=== PATIENT | male | born 1955 | race Caucasian/White ===

== ENCOUNTER → 2020-03-04 | Day surgery (SDC) | payer BC ==
[2020-03-02 13:45] VITALS: BMI 27.8
[~2020-03-04] MED LIST: LACTATED RINGERS 1,000 ML IV SCH; LIDOCAINE 1% (10MG/ML) FOR IV START INTRADERMA ONE; LIDOCAINE 1% INJ 10MG/ML (20 ML MDV) ONE; MIDAZOLAM 2 MG/2 ML VIAL ONE; PROPOFOL 10 MG/ML 20 ML VIAL IV ONE; fentaNYL (PF) 50 MCG/ML 2 ML AMP ONE
--- NOTE | 2020-03-04 08:04 | P.GSHP ---
History of Present Illness H&P Date: 03/04/20 CHIEF COMPLAINT: Colon screen HISTORY OF PRESENT ILLNESS: The patient is a 64-year-old male who presents for colon screen. Lower endoscopy was offered for further evaluation and management. PAST MEDICAL HISTORY: Please see list. PAST SURGICAL HISTORY: Please see list. MEDICATIONS: Please see list. ALLERGIES: Please see list. SOCIAL HISTORY: No illicit drug use FAMILY HISTORY: No reports of Crohn disease or ulcerative colitis. REVIEW OF ORGAN SYSTEMS: CONSTITUTIONAL: No reports of fevers or chills. PHYSICAL EXAM: VITAL SIGNS: Stable GENERAL: Well-developed pleasant in no acute distress. HEENT: No scleral icterus. Extraocular movements grossly intact. Moist buccal mucosa. NECK: Supple without lymphadenopathy. CHEST: Unlabored respirations. Equal bilateral excursions. CARDIOVASCULAR: Regular rate and rhythm. Distal 2+ pulses. ABDOMEN: Soft, nontender, nondistended. MUSCULOSKELETAL: No clubbing, cyanosis, or edema. ASSESSMENT: 1. Colon screen. PLAN: 1. Recommend proceeding with a lower endoscopy Past Medical History Past Medical History: Chest Pain / Angina, Diabetes Mellitus, Hyperlipidemia, Hypertension, Myocardial Infarction ([place]) Last Myocardial Infarction Date:: 2004 History of Any Multi-Drug Resistant Organisms: None Reported Past Surgical History: Heart Catheterization With Stent, Hernia Repair Additional Past Surgical History / Comment(s): Stents 2004, 2011, double aortic anerysym surgery. Past Anesthesia/Blood Transfusion Reactions: No Reported Reaction Date of Last Stent Placement:: 2011 Smoking Status: Former smoker - Past Family History Father Family Medical History: No Reported History Medications and Allergies Home Medications Medication Instructions Recorded Confirmed Type Aspirin [Adult Low Dose Aspirin EC] 81 mg PO DAILY 12/02/19 03/02/20 History Atorvastatin [Lipitor] 40 mg PO DAILY 12/02/19 03/02/20 History Lisinopril [Prinivil] 5 mg PO QAM 12/02/19 03/02/20 History Metoprolol Tartrate [Lopressor] 50 mg PO QAM 12/02/19 03/02/20 History metFORMIN HCL ER [Glucophage Xr] 500 mg PO PC-SUPPER 12/02/19 03/02/20 History Allergies Allergy/AdvReac Type Severity Reaction Status Date / Time No Known Allergies Allergy Verified 03/02/20 13:39
[2020-03-04 08:20] VITALS: RESP 16; TEMP 96.9
[2020-03-04 08:41] LABS: Glucose,Whole Blood 111 mg/dL (75-99)
--- NOTE | 2020-03-04 09:12 | P.PCN ---
Date of Procedure: 03/04/20 Description of Procedure: PREOPERATIVE DIAGNOSIS: Colonoscopy screening POSTOPERATIVE DIAGNOSIS: Tubular adenoma ascending colon Tubular adenoma sigmoid colon Sigmoid diverticulosis Internal hemorrhoids, grade 2 OPERATION: Colonoscopy to the ileocecal valve and appendiceal orifice. Colonoscopy with multiple hot snare polypectomies Colonoscopy with cold forceps biopsies SURGEON: Tayler Don MD. ANESTHESIA: MAC. INDICATIONS: The patient is an 64-year-old male who presents for his first colonoscopy screening. Benefits and risks were described and informed consent was obtained. DESCRIPTION OF PROCEDURE: The patient had undergone Suprep. He had been brought into the operating room and laid in the left lateral decubitus position. After adequate intravenous sedation, the rectum was examined with 2% lidocaine jelly. The prostate was unremarkable. External hemorrhoids were encountered. The rectal tone was within normal limits. No lesions were palpated in the rectal vault. An Olympus colonoscope was advanced until the ileocecal valve and appendiceal orifice were clearly viewed. The prep was fair. Sigmoid diverticulosis was encountered. Multiple colonic polyps were found and snare polypectomy. No evidence of focal colitis was found. Retroflexion of the scope demonstrated grade 2 internal hemorrhoids without active bleeding or inflammation. The colon was desufflated. The patient had tolerated the procedure well. Withdrawal time was over 6 minutes. FINDINGS: Aronchick preparation quality scale 2 (1-5) Internal hemorrhoids, grade 2 with recent inflammation and bleeding External hemorrhoids, grade 2. No arteriovenous malformations. Sigmoid diverticulosis Removal of 4 polyps from the proximal, mid transverse colon and descending colon: - Snare polypectomy 21 cm from the anal verge, 6 mm tubulovillous adenoma polyp. - Snare polypectomy at ascending colon, 5 mm flat villous adenoma polyp. - Cold forceps biopsy at 20 cm from the anal verge, 4 mm polyp. - Cold forceps biopsy at 18 cm from the anal verge, 5 mm polyp. No focal colitis. RECOMMENDATIONS: Repeat colonoscopy in 3 years, 2022 Plan - Discharge Summary Discharge Rx Participant: No New Discharge Prescriptions: Continue Metoprolol Tartrate [Lopressor] 50 mg PO QAM Atorvastatin [Lipitor] 40 mg PO DAILY metFORMIN HCL ER [Glucophage Xr] 500 mg PO PC-SUPPER Lisinopril [Prinivil] 5 mg PO QAM Aspirin [Adult Low Dose Aspirin EC] 81 mg PO DAILY Discharge Medication List Aspirin [Adult Low Dose Aspirin EC] 81 mg PO DAILY 03/16/20 [History] Atorvastatin [Lipitor] 40 mg PO DAILY 12/02/19 [History] Lisinopril [Prinivil] 5 mg PO QAM 12/02/19 [History] Metoprolol Tartrate [Lopressor] 50 mg PO QAM 12/02/19 [History] metFORMIN HCL ER [Glucophage Xr] 500 mg PO PC-SUPPER 12/02/19 [History] Follow up Appointment(s)/Referral(s): Tayler Don MD [STAFF PHYSICIAN] - As Needed Patient Instructions/Handouts: *Surgery [facility] - (Anesthesia) Endoscopy Discharge Instructions, Colonoscopy (DC), Diverticulosis Diet (GEN), Diverticulosis (DC) Activity/Diet/Wound Care/Special Instructions: Expected blood in stools for 5 days. Repeat colonoscopy in 3 years, 2022 Discharge Disposition: HOME SELF-CARE
[2020-03-04 09:30] VITALS: BP 106/68; PULSE 60
== END | disposition home or self-care (01) ==
LOC: ORWHC2ENDO 07:56
PROVIDERS: ATTEND Surgery Plastic and Reconstructive Surgery
DX: Z12.11 Encounter for screening for malignant neoplasm of colon (principal); K63.5 Polyp of colon; K57.30 Diverticulosis of large intestine without perforation or abscess without bleeding; K64.1 Second degree hemorrhoids; E11.9 Type 2 diabetes mellitus without complications; E78.5 Hyperlipidemia, unspecified; I10 Essential (primary) hypertension; I25.2 Old myocardial infarction; Z95.5 Presence of coronary angioplasty implant and graft; Z98.890 Other specified postprocedural states; Z87.891 Personal history of nicotine dependence; Z79.84 Long term (current) use of oral hypoglycemic drugs; Z79.82 Long term (current) use of aspirin; Z79.899 Other long term (current) drug therapy
CPT/HCPCS: 88305; 45380; 45385; J2250; J2001; J3010; J2704

== ENCOUNTER 2020-08-03 14:30 | Emergency (ER) | payer BC, OTHER ==
--- NOTE | 2020-08-03 15:01 | XR ---
EXAMINATION TYPE: XR ribs bilat w pa chest xray DATE OF EXAM: 08/03/2020 COMPARISON: 02/09/2013 HISTORY: Pain TECHNIQUE: Frontal view of the chest and 4 views of the ribs were obtained bilaterally. FINDINGS: There is no pneumothorax. Limited inspiration with subsegmental changes at both lung bases likely related atelectasis. There is a displaced fracture involving the posterior lateral left eighth through 11th rib. Surgical clips are seen in the abdomen. IMPRESSION: 1. Undisplaced fractures involving the left eighth through 11th rib. Correlate clinically. No pneumot horax.
[2020-08-03 15:05] VITALS: RESP 18
[2020-08-03] MEDS ORDERED: MORPHINE SULFATE 4 MG/ML SYRINGE IM STA (15:48)
[2020-08-03] MEDS ORDERED: MORPHINE SULFATE 4 MG/ML SYRINGE IVP STA (15:48)
--- NOTE | 2020-08-03 16:01 | ED ---
Fall HPI - General Chief Complaint: Fall Stated Complaint: [facility] Fell off of ladder Time Seen by Provider: 08/03/20 15:16 Source: patient Mode of arrival: ambulatory - History of Present Illness Initial Comments: Patient is a 65-year-old male presents emergency Department with complaints of left rib pain after he fell approximately 4-5 feet off a ladder about 4 hours prior to arrival. Patient states she was trying to change a light bulb when he missed his footing and fell off landing onto a hard piece of equipment. Patient states he did not hit his head and has no other injuries except for this left rib pain. Patient does also have an abrasion to the same area he's having pain. He denies being on blood thinners. He denies any neck pain, chest pain, trouble breathing, abdominal pain, pain in his extremities. She states she did not take any pain medicine yet, he took a cab to the ER. Patient has no further complaints from this fall. Upon arrival to the ER, his vitals are stable. - Related Data Home Medications Medication Instructions Recorded Confirmed Aspirin [Adult Low Dose Aspirin EC] 81 mg PO DAILY 12/02/19 08/03/20 Atorvastatin [Lipitor] 40 mg PO DAILY 12/02/19 08/03/20 Metoprolol Tartrate [Lopressor] 50 mg PO DAILY 12/02/19 08/03/20 lisinopriL [Prinivil] 5 mg PO DAILY 12/02/19 08/03/20 metFORMIN HCL ER [Glucophage Xr] 500 mg PO PC-SUPPER 12/02/19 08/03/20 Previous Rx's Medication Instructions Recorded Hydrocodone/Acetaminophen [[place] 1 tab PO Q6HR PRN #12 tab 08/03/20 5-325] Allergies Allergy/AdvReac Type Severity Reaction Status Date / Time No Known Allergies Allergy Verified 08/03/20 16:02 Review of Systems ROS Statement: Those systems with pertinent positive or pertinent negative responses have been documented in the HPI. ROS Other: All systems not noted in ROS Statement are negative. Past Medical History Past Medical History: Chest Pain / Angina, Diabetes Mellitus, Hyperlipidemia, Hypertension, Myocardial Infarction ([place]) Last Myocardial Infarction Date:: 2004 History of Any Multi-Drug Resistant Organisms: None Reported Past Surgical History: Heart Catheterization With Stent, Hernia Repair Additional Past Surgical History / Comment(s): Stents 2004, 2011, double aortic anerysym surgery. Past Anesthesia/Blood Transfusion Reactions: No Reported Reaction Date of Last Stent Placement:: 2011 Past Psychological History: No Psychological Hx Reported Past Alcohol Use History: Occasional Past Drug Use History: None Reported - Past Family History Father Family Medical History: No Reported History General Exam - General Exam Comments Initial Comments: GENERAL: Patient is well-developed and well-nourished. Patient is nontoxic and in no acute distress. HEAD: Atraumatic, normocephalic. EYES: Pupils equal round and reactive to light, extraocular movements intact, sclera anicteric, conjunctiva are normal. Eyelids were unremarkable. ENT: TMs normal, nares patent, oropharynx clear without exudates. Moist mucous membranes. NECK: Normal range of motion, supple without lymphadenopathy or JVD. LUNGS: Unlabored respirations. Breath sounds clear to auscultation bilaterally and equal. No wheezes rales or rhonchi. HEART: Regular rate and rhythm without murmurs, rubs or gallops. ABDOMEN: Soft, nontender, normoactive bowel sounds. No guarding, no rebound. No masses appreciated. No flank pain. : Deferred MUSCULOSKELETAL: Normal extremities with adequate strength and normal range of motion, no pitting or edema. No clubbing or cyanosis. Pain with palpation of the left middle, lateral ribs. NEUROLOGICAL: Patient is alert and oriented x 3. Motor and sensory are also intact. Cranial nerves II through XII grossly intact. Symmetrical smile. Normal speech, normal gait. PSYCH: Normal mood, normal affect. SKIN: Warm, Dry, normal turgor. Patient has a large abrasion to his left low back, left side. There is no active bleeding. This is tender to palpation. Limitations: no limitations Course Vital Signs 08/03/20 08/03/20 14:34 16:29 Temperature 98.3 F Pulse Rate 96 94 Respiratory 18 18 Rate Blood Pressure 114/78 120/76 O2 Sat by Pulse 98 96 Oximetry Medical Decision Making - Medical Decision Making Patient is a 65-year-old male presenting with left rib pain after falling 4-5 feet off ladder about 4 hours prior to arrival. He did not hit his head, he is not on blood thinners. His only complaint is a left rib pain. X-rays reveal nondisplaced fractures involving the left eighth through 11th rib. There is no pneumothorax. Patient's vital signs are stable here. He does not have any abdominal pain no other areas of pain. Patient was given pain medicine. He states he does not want to stay in the hospital. I will send him home with additional pain medicine as well as incentive spirometry. Patient is in agreement with this plan of care. Strict return parameters were discussed with the patient and he verbalized understanding. He'll follow up with his PCP. Case discussed with Dr. Mccord. Disposition Clinical Impression: Fall, Multiple fractures of ribs, left side, initial encounter for closed fracture Disposition: HOME SELF-CARE Condition: Stable Instructions (If sedation given, give patient instructions): Rib Fracture (ED) Additional Instructions: Please return to the Emergency Department if symptoms worsen or any other concerns. Recommend alternating between Tylenol and Motrin for discomfort. May take [place] for severe pain. Use incentive spirometry as discussed to prevent pneumonia. Follow-up with PCP. Prescriptions: Hydrocodone/Acetaminophen [[place] 5-325] 1 tab PO Q6HR PRN #12 tab PRN Reason: Pain Is patient prescribed a controlled substance at d/c from ED?: Yes When asked, does pt state using other controlled substances?: No If prescribed controlled substance>3 days was MAPS reviewed?: Prescribed <3 Days If opioid is for acute pain is fill amount 7 days or less?: Yes If Rx opioid, was Start Talking consent form obtained?: Yes Referrals: Yemi Vizcaino DO [Primary Care Provider] - 1-2 days
[2020-08-03 16:30] VITALS: BP 120/76; PULSE 94; TEMP 98.3
== END 2020-08-03 16:30 | disposition home or self-care (01) ==
LOC: EC 14:30
DX: S22.42XA Multiple fractures of ribs, left side, initial encounter for closed fracture (principal); E11.9 Type 2 diabetes mellitus without complications; E78.5 Hyperlipidemia, unspecified; I10 Essential (primary) hypertension; I20.9 Angina pectoris, unspecified; I25.2 Old myocardial infarction; Z79.84 Long term (current) use of oral hypoglycemic drugs; Z79.82 Long term (current) use of aspirin; Z95.5 Presence of coronary angioplasty implant and graft; W11.XXXA Fall on and from ladder, initial encounter; Y93.89 Activity, other specified; Y92.69 Other specified industrial and construction area as the place of occurrence of the external cause
CPT/HCPCS: 71111; 99284; 96372; J2270

== ENCOUNTER 2020-10-29 14:51 | Emergency (ER) | payer BC, OTHER ==
[2020-10-29 15:02] VITALS: BP 125/70; PULSE 77; RESP 18; TEMP 98.2
[2020-10-29] MEDS ORDERED: LIDOCAINE 1% INJ 10MG/ML (20 ML MDV) SQ ONE (15:47)
[2020-10-29] MEDS ORDERED: DIPH,PERTUS(ACELL)TETVAC-LF 0.5 ML VIAL IM ONE (15:49)
--- NOTE | 2020-10-29 15:49 | ED ---
Wound/Laceration HPI - General Chief Complaint: Wound/Laceration Stated Complaint: finger lac-[facility] Time Seen by Provider: 10/29/20 15:43 Source: patient Mode of arrival: ambulatory Limitations: no limitations - History of Present Illness Initial Comments: 65-year-old male presents to emergency Department with a chief complaint of laceration. Patient states this occurred about one hour prior to arrival. States he cut his finger on a band saw. States injury is located in the posterior aspect of the left second digit. States there was some initial b leeding which has since mostly resolved. He does not take any blood thinners. Reports full range of motion of the left second digit. Denies numbness or tingling. Tetanus not up-to-date. - Related Data Home Medications Medication Instructions Recorded Confirmed Aspirin [Adult Low Dose Aspirin EC] 81 mg PO DAILY 12/02/19 08/03/20 Atorvastatin [Lipitor] 40 mg PO DAILY 12/02/19 08/03/20 Metoprolol Tartrate [Lopressor] 50 mg PO DAILY 12/02/19 08/03/20 lisinopriL [Prinivil] 5 mg PO DAILY 12/02/19 08/03/20 metFORMIN HCL ER [Glucophage Xr] 500 mg PO PC-SUPPER 12/02/19 08/03/20 Previous Rx's Medication Instructions Recorded Hydrocodone/Acetaminophen [[place] 1 tab PO Q6HR PRN #12 tab 08/03/20 5-325] Allergies Allergy/AdvReac Type Severity Reaction Status Date / Time No Known Allergies Allergy Verified 10/29/20 15:00 Review of Systems ROS Statement: Those systems with pertinent positive or pertinent negative responses have been documented in the HPI. ROS Other: All systems not noted in ROS Statement are negative. Past Medical History Past Medical History: Chest Pain / Angina, Diabetes Mellitus, Hyperlipidemia, Hypertension, Myocardial Infarction ([place]) Last Myocardial Infarction Date:: 2004 History of Any Multi-Drug Resistant Organisms: None Reported Past Surgical History: Heart Catheterization With Stent, Hernia Repair Additional Past Surgical History / Comment(s): Stents 2004, 2011, double aortic anerysym surgery. Past Anesthesia/Blood Transfusion Reactions: No Reported Reaction Date of Last Stent Placement:: 2011 Past Psychological History: No Psychological Hx Reported Smoking Status: Never smoker Past Alcohol Use History: Occasional Past Drug Use History: None Reported - Past Family History Father Family Medical History: No Reported History General Exam Limitations: no limitations General appearance: alert, in no apparent distress Head exam: Present: atraumatic, normocephalic, normal inspection Eye exam: Present: normal appearance, PERRL, EOMI Pupils: Present: normal accommodation ENT exam: Present: normal exam, normal oropharynx, mucous membranes moist Neck exam: Present: normal inspection, full ROM. Absent: tenderness Respiratory exam: Present: normal lung sounds bilaterally. Absent: respiratory distress Cardiovascular Exam: Present: regular rate, normal rhythm, normal heart sounds Extremities exam: Present: full ROM, tenderness, normal capillary refill, other (palpable ulnar and radial pulses bilaterally.). Absent: normal inspection (27 with a laceration of the posterior aspect of the left second digit.no injury to the nail or nailbed.), pedal edema, joint swelling, calf tenderness Back exam: Present: normal inspection, full ROM. Absent: tenderness Neurological exam: Present: alert, oriented X3, normal gait Psychiatric exam: Present: normal affect, normal mood Skin exam: Present: warm, dry, intact, normal color Course Vital Signs 10/29/20 15:00 Temperature 98.2 F Pulse Rate 77 Respiratory 18 Rate Blood Pressure 125/70 O2 Sat by Pulse 97 Oximetry Procedures - Laceration Laceration #1 Consent Obtained: verbal consent Indication: laceration Site: hand Size (cm): 2 Description: linear, clean Depth: simple, single layer Sedation/Analgesia: none Anesthetic Used: lidocaine 1% Anesthesia Technique: local infiltration Amount (mls): 5 Pre-repair: irrigated extensively, deep structures intact Type of Sutures: nylon Size of Sutures: 4-0 Number of Sutures: 4 Technique: simple, interrupted, other ([id number]) Patient Tolerated Procedure: well, no complications Medical Decision Making - Medical Decision Making 65-year-old male presents emergency Department with a chief complaint of laceration. On physical examination, there is a laceration on the posterior aspect the left second digit measuring approximately 2 cm in length. Laceration site was thoroughly irrigated. There is a small arterial bleed. [id number] suture applied in addition to 3 simple interrupted sutures. Tetanus was updated. Bleeding subsided. Patient advised to return in 7 days for suture removal. Return parameters discussed the patient was understanding and agreeable. Case discussed with Disposition Clinical Impression: Laceration Disposition: HOME SELF-CARE Condition: Stable Instructions (If sedation given, give patient instructions): Care For Your Stitches (DC), Laceration (DC) Additional Instructions: Please return to the emergency room in 7 days to have sutures removed. Please watch for any signs of infection which may include increased pain, swelling, redness, fever or chills. Please return to emergency room for any signs of infection do occur. Please use clean soap and water over the area to prevent scabbing over your stitches. Please leave wound covered for the first 24-48 hours and then leave wound open to air. Please return to the emergency room for any other concerns. Is patient prescribed a controlled substance at d/c from ED?: No Referrals: Yemi Vizcaino DO [Primary Care Provider] - 1-2 days Time of Disposition: 16:17
== END 2020-10-29 16:32 | disposition home or self-care (01) ==
LOC: EC 14:51
DX: S61.211A Laceration without foreign body of left index finger without damage to nail, initial encounter (principal); E11.9 Type 2 diabetes mellitus without complications; E78.5 Hyperlipidemia, unspecified; I10 Essential (primary) hypertension; I25.2 Old myocardial infarction; Z23 Encounter for immunization; Z79.82 Long term (current) use of aspirin; Z79.84 Long term (current) use of oral hypoglycemic drugs; Z79.899 Other long term (current) drug therapy; Z95.5 Presence of coronary angioplasty implant and graft; W31.2XXA Contact with powered woodworking and forming machines, initial encounter; Y92.69 Other specified industrial and construction area as the place of occurrence of the external cause; Y99.0 Civilian activity done for income or pay
CPT/HCPCS: 90715; 99282; 12001; 90471; J2001

== ENCOUNTER 2022-08-25 19:39 | Emergency (ER) | payer BC ==
[2022-08-25 19:49] VITALS: TEMP 98.5
--- NOTE | 2022-08-26 03:09 | XR ---
EXAMINATION TYPE: XR KUB DATE OF EXAM: 08/26/2022 COMPARISON: NONE HISTORY: Constipation TECHNIQUE: 2 views upright FINDINGS: There is some mild retained fecal material in the large bowel. No sign of intestinal obstru ction or pneumoperitoneum. No pathologic calcification over the kidneys. Lung bases are clear of cons olidation. IMPRESSION: Nonacute abdomen.
[2022-08-26] MEDS ORDERED: LACTULOSE 20 GM/30 ML CUP PO ONE (03:45)
--- NOTE | 2022-08-26 04:00 | ED ---
Abdominal Pain HPI - General Chief Complaint: Abdominal Pain Stated Complaint: Constipation Time Seen by Provider: 08/26/22 02:55 Source: patient Mode of arrival: ambulatory Limitations: no limitations - History of Present Illness Initial Comments: 67-year-old male presents emergency departments reporting constipation. He states that he normally uses to have bowel movements daily. Approximately 3 weeks ago the patient began suffering from constipation and has had a hard time having bowel movements. He has been increasing his water and fiber intake. He has even taken MiraLAX a couple a times. States that he will pass a small amount of stool however nothing significant. Nits to abdominal distention. He did see his surgeon, Dr. rC because of his issue. He is scheduled for a colonoscopy next week. He denies using any other medications to have a bowel movement other than the MiraLAX. States that he eats a high fiber diet and has been exercising. He did start taking CoQ10 3 weeks ago however denies any other medication changes. Does not take any chronic narcotics or iron supplements. He last had a colonoscopy 3 years ago which demonstrated polyps. No history of cancer. He denies any black or bloody stools. No difficulties with urination. No back pain. No other alleviating, precipitating or modifying factors - Related Data Home Medications Medication Instructions Recorded Confirmed Aspirin [Adult Low Dose Aspirin EC] 81 mg PO DAILY 12/02/19 08/26/22 Atorvastatin [Lipitor] 40 mg PO DAILY 12/02/19 08/26/22 Metoprolol Tartrate [Lopressor] 50 mg PO DAILY 12/02/19 08/26/22 lisinopriL [Prinivil] 2.5 mg PO DAILY 12/02/19 08/26/22 metFORMIN HCL ER [Glucophage XR] 500 mg PO PC-SUPPER 12/02/19 08/26/22 Multivitamins, Thera [Multivitamin 1 tab PO DAILY 08/26/22 08/26/22 (formulary)] Previous Rx's Medication Instructions Recorded Lactulose [Cephulac] 20 gm PO BID PRN #420 ml 08/26/22 Allergies Allergy/AdvReac Type Severity Reaction Status Date / Time No Known Allergies Allergy Verified 08/31/22 07:21 Review of Systems ROS Statement: Those systems with pertinent positive or pertinent negative responses have been documented in the HPI. ROS Other: All systems not noted in ROS Statement are negative. Past Medical History Past Medical History: Chest Pain / Angina, Diabetes Mellitus, Hyperlipidemia, Hypertension, Myocardial Infarction ([place]) Last Myocardial Infarction Date:: 2004 History of Any Multi-Drug Resistant Organisms: None Reported Past Surgical History: Heart Catheterization With Stent, Hernia Repair Additional Past Surgical History / Comment(s): Stents 2004, 2011, double aortic anerysym surgery. Past Anesthesia/Blood Transfusion Reactions: No Reported Reaction Date of Last Stent Placement:: 2011 Past Psychological History: No Psychological Hx Reported Smoking Status: Never smoker Past Alcohol Use History: Occasional Past Drug Use History: None Reported - Past Family History Father Family Medical History: No Reported History General Exam Limitations: no limitations General appearance: alert, in no apparent distress Head exam: Present: atraumatic, normocephalic, normal inspection Eye exam: Present: normal appearance, PERRL, EOMI. Absent: scleral icterus, conjunctival injection, periorbital swelling ENT exam: Present: normal exam, mucous membranes moist Neck exam: Present: normal inspection. Absent: tenderness, meningismus, lymphadenopathy Respiratory exam: Present: normal lung sounds bilaterally. Absent: respiratory distress, wheezes, rales, rhonchi, stridor Cardiovascular Exam: Present: regular rate, normal rhythm, normal heart sounds. Absent: systolic murmur, diastolic murmur, rubs, gallop, clicks GI/Abdominal exam: Present: soft, normal bowel sounds. Absent: distended, tenderness, guarding, rebound, rigid Extremities exam: Present: normal inspection, full ROM, normal capillary refill. Absent: tenderness, pedal edema, joint swelling, calf tenderness Back exam: Present: normal inspection Neurological exam: Present: alert, oriented X3, CN II-XII intact Psychiatric exam: Present: normal affect, normal mood Skin exam: Present: warm, dry, intact, normal color. Absent: rash Course Vital Signs 08/25/22 08/26/22 08/26/22 19:47 02:21 04:03 Temperature 98.5 F Pulse Rate 89 82 87 Respiratory 18 18 16 Rate Blood Pressure 161/89 159/82 126/71 O2 Sat by Pulse 98 97 98 Oximetry Medical Decision Making - Medical Decision Making On arrival patient was placed into room 33. A thorough history and physical exam was performed. X-ray is performed of the patient's abdomen which demonstrates mild retained fecal matter in the large bowel. No obstruction. His results are discussed with the patient. He has no tenderness to abdominal palpation. I discussed diagnosis, differential treatment options. Patient given a dose of lactulose the emergency room. Will be discharged home with an additional prescription for lactulose. Instructed to keep his appointment for his colonoscopy and return for any new or worsening symptoms. Patient was agreeable to treatment plan and he was discharged home in stable condition Disposition Clinical Impression: Constipation Disposition: HOME SELF-CARE Condition: Stable Instructions (If sedation given, give patient instructions): Constipation (ED) Additional Instructions: Please take the lactulose up to twice daily for constipation. Follow-up for your colonoscopy. Return for any new or worsening symptoms Prescriptions: Lactulose [Cephulac] 20 gm PO BID PRN #420 ml PRN Reason: Constipation Is patient prescribed a controlled substance at d/c from ED?: No Referrals: Yemi Vizcaino DO [Primary Care Provider] - 1-2 days Time of Disposition: 04:01
[2022-08-26 04:06] VITALS: BP 126/71; PULSE 87; RESP 16
== END 2022-08-26 04:03 | disposition home or self-care (01) ==
LOC: EC 19:39
DX: K59.00 Constipation, unspecified (principal); I10 Essential (primary) hypertension; I25.2 Old myocardial infarction; E11.9 Type 2 diabetes mellitus without complications; E78.5 Hyperlipidemia, unspecified; Z79.82 Long term (current) use of aspirin; Z79.84 Long term (current) use of oral hypoglycemic drugs; Z79.899 Other long term (current) drug therapy
CPT/HCPCS: 74018; 99284

== ENCOUNTER 2022-08-31 06:56 | Day surgery (SDC) | payer BC ==
[2022-08-26 12:02] VITALS: BMI 26.6
[~2022-08-31 06:56] MED LIST changes: -LIDOCAINE 1% (10MG/ML) FOR IV START INTRADERMA ONE; +LIDOCAINE 1% (10MG/ML) FOR IV START INTRADERMA PRN; -LIDOCAINE 1% INJ 10MG/ML (20 ML MDV) ONE; -MIDAZOLAM 2 MG/2 ML VIAL ONE; -PROPOFOL 10 MG/ML 20 ML VIAL IV ONE; -fentaNYL (PF) 50 MCG/ML 2 ML AMP ONE
[2022-08-31 07:24] VITALS: TEMP 96.8
[2022-08-31 07:39] LABS: Glucose,Whole Blood 113 mg/dL (70-110)
[2022-08-31] MEDS ORDERED: PROPOFOL 10 MG/ML 20 ML VIAL IV ONE (07:43)
--- NOTE | 2022-08-31 07:50 | P.GSHP ---
History of Present Illness H&P Date: 08/31/22 CHIEF COMPLAINT: Change in bowel habits HISTORY OF PRESENT ILLNESS: The patient is a 67-year-old male who presents with change in bowel habits not being able to use the bathroom 3 weeks. Presented to the emergency room 1 week ago. Lower endoscopy was offered for further evaluation and management. PAST MEDICAL HISTORY: Please see list. PAST SURGICAL HISTORY: Please see list. MEDICATIONS: Please see list. ALLERGIES: Please see list. SOCIAL HISTORY: No illicit drug use FAMILY HISTORY: No reports of Crohn disease or ulcerative colitis. REVIEW OF ORGAN SYSTEMS: CONSTITUTIONAL: No reports of fevers or chills. PHYSICAL EXAM: VITAL SIGNS: Stable GENERAL: Well-developed pleasant in no acute distress. HEENT: No scleral icterus. Extraocular movements grossly intact. Moist buccal mucosa. NECK: Supple without lymphadenopathy. CHEST: Unlabored respirations. Equal bilateral excursions. CARDIOVASCULAR: Regular rate and rhythm. Distal 2+ pulses. ABDOMEN: Soft, nontender, nondistended. MUSCULOSKELETAL: No clubbing, cyanosis, or edema. ASSESSMENT: 1. Change in bowel habits PLAN: 1. Recommend proceeding with a lower endoscopy Past Medical History Past Medical History: Chest Pain / Angina, Diabetes Mellitus, Hyperlipidemia, Hypertension, Myocardial Infarction (AR) Last Myocardial Infarction Date:: 2004 History of Any Multi-Drug Resistant Organisms: None Reported Past Surgical History: Heart Catheterization With Stent, Hernia Repair Additional Past Surgical History / Comment(s): Stents 2004, 2011, double aortic anerysym surgery. Past Anesthesia/Blood Transfusion Reactions: No Reported Reaction Date of Last Stent Placement:: 2011 Smoking Status: Former smoker - Past Family History Father Family Medical History: No Reported History Medications and Allergies Home Medications Medication Instructions Recorded Confirmed Type Aspirin [Adult Low Dose Aspirin EC] 81 mg PO DAILY 12/02/19 08/26/22 History Atorvastatin [Lipitor] 40 mg PO DAILY 12/02/19 08/26/22 History Metoprolol Tartrate [Lopressor] 50 mg PO DAILY 12/02/19 08/26/22 History lisinopriL [Prinivil] 2.5 mg PO DAILY 12/02/19 08/26/22 History metFORMIN HCL ER [Glucophage XR] 500 mg PO PC-SUPPER 12/02/19 08/26/22 History Lactulose [Cephulac] 20 gm PO BID PRN #420 ml 08/26/22 08/26/22 Rx Multivitamins, Thera [Multivitamin 1 tab PO DAILY 08/26/22 08/26/22 History (formulary)] Allergies Allergy/AdvReac Type Severity Reaction Status Date / Time No Known Allergies Allergy Verified 08/31/22 07:21 Surgical - Exam Vital Signs Temp Pulse Resp BP Pulse Ox 96.8 F L 58 L 16 158/74 97 08/31/22 07:23 08/31/22 07:23 08/31/22 07:23 08/31/22 07:23 08/31/22 07:23 Results - Labs Abnormal Lab Results - Last 24 Hours (Table) 08/31/22 Range/Units 07:38 POC Glucose (mg/dL) 113 H (70-110) mg/dL
--- NOTE | 2022-08-31 08:04 | P.PCN ---
Date of Procedure: 08/31/22 Description of Procedure: PREOPERATIVE DIAGNOSIS: Change in bowel habits History of colon polyp POSTOPERATIVE DIAGNOSIS: Diverticulosis, scattered. OPERATION: Colonoscopy to the cecum, ileocecal valve and appendiceal orifice. SURGEON: Tayler Don MD. ANESTHESIA: MAC. INDICATIONS: The patient is a 67-year-old male who presents for change in bowel habits. Benefits and risks were described and informed consent was obtained. DESCRIPTION OF PROCEDURE: The patient had undergone Sutab prep. The patient had been brought into the operating room and laid in the left lateral decubitus position. After adequate intravenous sedation, the rectum was examined with 2% lidocaine jelly. No external hemorrhoids were encountered. The rectal tone was within normal limits. No lesions were palpated in the rectal vault. An Olympus colonoscope was advanced until the cecum, ileocecal valve and appendiceal orifice were clearly viewed. The prep was good. Scattered diverticulosis was encountered throughout the colon. No colonic polyps were found. No evidence of focal colitis was found. Retroflexion of the scope demonstrated grade 2 internal hemorrhoids without active bleeding or inflammation. The colon was desufflated. The patient had tolerated the procedure well. Withdrawal time was over 6 minutes. FINDINGS: Aronchick preparation quality scale 2 (1-5) Internal hemorrhoids, grade 1 No external prolapsed hemorrhoids. No arteriovenous malformations. No adenomatous polyps. No focal colitis. Scattered diverticulosis RECOMMENDATIONS: Lower endoscopy in 5 years, 2026 Plan - Discharge Summary New Discharge Prescriptions: No Action Metoprolol Tartrate [Lopressor] 50 mg PO DAILY Atorvastatin [Lipitor] 40 mg PO DAILY metFORMIN HCL ER [Glucophage XR] 500 mg PO PC-SUPPER lisinopriL [Prinivil] 2.5 mg PO DAILY Aspirin [Adult Low Dose Aspirin EC] 81 mg PO DAILY Lactulose [Cephulac] 20 gm PO BID PRN #420 ml PRN Reason: Constipation Multivitamins, Thera [Multivitamin (formulary)] 1 tab PO DAILY Discharge Medication List Aspirin [Adult Low Dose Aspirin EC] 81 mg PO DAILY 12/02/19 [History] Atorvastatin [Lipitor] 40 mg PO DAILY 12/02/19 [History] Metoprolol Tartrate [Lopressor] 50 mg PO DAILY 12/02/19 [History] lisinopriL [Prinivil] 2.5 mg PO DAILY 12/02/19 [History] metFORMIN HCL ER [Glucophage XR] 500 mg PO PC-SUPPER 12/02/19 [History] Lactulose [Cephulac] 20 gm PO BID PRN #420 ml 08/26/22 [Rx] Multivitamins, Thera [Multivitamin (formulary)] 1 tab PO DAILY 08/26/22 [History]
[2022-08-31 08:47] VITALS: BP 111/59; PULSE 59; RESP 16
== END 2022-08-31 08:50 | disposition home or self-care (01) ==
LOC: ORWHC2ENDO 06:56
PROVIDERS: ATTEND Surgery Plastic and Reconstructive Surgery
DX: K57.30 Diverticulosis of large intestine without perforation or abscess without bleeding (principal); K64.1 Second degree hemorrhoids; Z86.010 Personal history of colon polyps; I25.119 Atherosclerotic heart disease of native coronary artery with unspecified angina pectoris; I10 Essential (primary) hypertension; E78.5 Hyperlipidemia, unspecified; I25.2 Old myocardial infarction; Z79.01 Long term (current) use of anticoagulants; Z79.02 Long term (current) use of antithrombotics/antiplatelets; Z79.82 Long term (current) use of aspirin; Z79.1 Long term (current) use of non-steroidal anti-inflammatories (NSAID); E11.9 Type 2 diabetes mellitus without complications; Z79.899 Other long term (current) drug therapy; Z79.84 Long term (current) use of oral hypoglycemic drugs; Z95.818 Presence of other cardiac implants and grafts; Z98.890 Other specified postprocedural states; Z87.891 Personal history of nicotine dependence
CPT/HCPCS: 45378; J2704

== ENCOUNTER → 2023-09-12 | Outpatient (CLI) | payer BC ==
[2023-09-12 14:51] LABS: Basophils # (A) 0.04 X 10*3/uL (0.00-0.10); Basophils % (A) 0.4 %; Eosinophils # (A) 0.33 X 10*3/uL (0.04-0.35); Eosinophils % (A) 3.6 %; HCT 40.1 % (39.6-50.0); Lymphocytes # (A) 1.47 X 10*3/uL (0.90-5.00); Lymphocytes % (A) 16.1 %; MCH 34.1 pg (27.0-32.0); MCHC 34.9 g/dL (32.0-37.0); MCV 97.8 FL (80.0-97.0); Mean Platelet Volume 10.2 FL (9.5-12.2); Monocytes # (A) 0.51 X 10*3/uL (0.20-1.00); Monocytes % (A) 5.6 %; NRBC Per 100 WBC 0 X 10*3/uL (0.00-0.01); Neutrophils # (A) 6.75 X 10*3/uL (1.80-7.70); Neutrophils % (A) 73.9 %; Platelet Count 194 X 10*3/uL (140-440); RDW 13.1 % (11.5-14.5); WBC 9.14 X 10*3/uL (4.50-10.00)
[2023-09-12 15:18] LABS: Chol/HDL Ratio 2.88 Ratio
[2023-09-12 15:19] LABS: ALT 32 U/L (10-49); AST 15 U/L (14-35); Albumin 4.2 g/dL (3.8-4.9); Albumin/Globulin Ratio 1.91 Ratio (1.60-3.17); Alkaline Phosphatase 128 U/L (41-126); BUN/Creat Ratio 20.11 Ratio (12.00-20.00); Bilirubin, Conjugated <0.20 mg/dL (0.20-0.40); Bilirubin,Unconjugated >0.30 mg/dL (0.20-1.00); Blood Urea Nitrogen 18.1 mg/dL (9.0-27.0); Calcium 9.3 mg/dL (8.7-10.3); Carbon Dioxide 24.5 mmol/L (21.6-31.8); Chloride 104 mmol/L (96-109); Globulin 2.2 g/dL (1.6-3.3); Glucose 196 mg/dL (70-110); LDL Cholesterol,Calculated 54.7 mg/dL (0.0-131.0); Potassium 4.8 mmol/L (3.5-5.5); Sodium 139 mmol/L (135-145); T4, Free (Free Thyroxine) 1.11 ng/dL (0.80-1.80); Total Bilirubin 0.5 mg/dL (0.3-1.2); Total Protein 6.4 g/dL (6.2-8.2)
== END | disposition home or self-care (01) ==
LOC: LABWHC1 09:33
PROVIDERS: ATTEND Internal Medicine Cardiovascular Disease
DX: Z12.5 Encounter for screening for malignant neoplasm of prostate (principal); I25.10 Atherosclerotic heart disease of native coronary artery without angina pectoris; I10 Essential (primary) hypertension; E11.9 Type 2 diabetes mellitus without complications; E78.2 Mixed hyperlipidemia
CPT/HCPCS: 84439; 80061; 80048; 80076; 84443; 85025; 83036; 36415; G0103

== ENCOUNTER 2024-01-30 16:03 | Emergency (ER) | payer BC ==
--- NOTE | 2024-01-30 17:05 | ED ---
Skin/Abscess/FB HPI - General Chief complaint: Skin/Abscess/Foreign Body Stated complaint: Abscess on neck Time Seen by Provider: 01/30/24 16:10 Source: patient, RN notes reviewed Mode of arrival: ambulatory Limitations: no limitations - History of Present Illness Initial comments: This is a 68-year-old male presents emergency department chief complaint of a skin lesion and concern for abscess of his right back. He states that this lesion was noticeable for about a month. States that the went to his primary care provider where they referred him to a summer child caregiver for further evaluation. He denies drainage from the area and pain with direct pressure. He denies feelings of nausea, vomiting, fatigue or discomfort. Denies history of skin cancer. - Related Data Home Medications Medication Instructions Recorded Confirmed Aspirin [Adult Low Dose Aspirin EC] 81 mg PO DAILY 12/02/19 08/26/22 Atorvastatin [Lipitor] 40 mg PO DAILY 12/02/19 08/26/22 Metoprolol Tartrate [Lopressor] 50 mg PO DAILY 12/02/19 08/26/22 lisinopriL [Prinivil] 2.5 mg PO DAILY 12/02/19 08/26/22 metFORMIN HCL ER [Glucophage XR] 500 mg PO PC-SUPPER 12/02/19 08/26/22 Multivitamins, Thera [Multivitamin 1 tab PO DAILY 08/26/22 08/26/22 (formulary)] Previous Rx's Medication Instructions Recorded Lactulose [Cephulac] 20 gm PO BID PRN #420 ml 08/26/22 Allergies Allergy/AdvReac Type Severity Reaction Status Date / Time No Known Allergies Allergy Verified 08/31/22 07:21 Review of Systems ROS Statement: Those systems with pertinent positive or pertinent negative responses have been documented in the HPI. ROS Other: All systems not noted in ROS Statement are negative. Past Medical History Past Medical History: Chest Pain / Angina, Diabetes Mellitus, Hyperlipidemia, Hypertension, Myocardial Infarction (OR) Last Myocardial Infarction Date:: 2004 History of Any Multi-Drug Resistant Organisms: None Reported Past Surgical History: Heart Catheterization With Stent, Hernia Repair Additional Past Surgical History / Comment(s): Stents 2004, 2011, double aortic anerysym surgery. Past Anesthesia/Blood Transfusion Reactions: No Reported Reaction Date of Last Stent Placement:: 2011 Past Psychological History: No Psychological Hx Reported Smoking Status: Never smoker Past Alcohol Use History: Occasional Past Drug Use History: None Reported - Past Family History Father Family Medical History: No Reported History General Exam Limitations: no limitations General appearance: alert, in no apparent distress Head exam: Present: atraumatic, normocephalic, normal inspection Eye exam: Present: normal appearance, PERRL, EOMI. Absent: scleral icterus, conjunctival injection, periorbital swelling ENT exam: Present: normal exam, mucous membranes moist Neck exam: Present: other (left neck 1 cm ulcerated lesion of the neck, no surrounding erythema or purulence noted. area is non-fluctuant) Respiratory exam: Present: normal lung sounds bilaterally. Absent: respiratory distress, wheezes, rales, rhonchi, stridor Cardiovascular Exam: Present: regular rate, normal rhythm, normal heart sounds. Absent: systolic murmur, diastolic murmur, rubs, gallop, clicks GI/Abdominal exam: Present: soft, normal bowel sounds. Absent: distended, tenderness, guarding, rebound, rigid Extremities exam: Present: normal inspection, full ROM, normal capillary refill. Absent: tenderness, pedal edema, joint swelling, calf tenderness Back exam: Present: normal inspection Neurological exam: Present: alert, oriented X3, CN II-XII intact Psychiatric exam: Present: normal affect, normal mood Skin exam: Present: warm, dry, intact, normal color, other (see above for description of lesion on patient's left neck). Absent: rash Course Vital Signs 01/30/24 01/30/24 16:23 17:58 Temperature 98.5 F 98.3 F Pulse Rate 100 70 Respiratory 20 18 Rate Blood Pressure 158/79 140/70 O2 Sat by Pulse 97 98 Oximetry Medical Decision Making - Medical Decision Making Was pt. sent in by a medical professional or institution (, PA, ENVIRONMENTAL JOURNALIST, urgent care, hospital, or [place] health care facility...) When possible be specific @ -No Did you speak to anyone other than the patient for history (EMS, parent, family, police, friend...)? What history was obtained from this source @ -No Did you review nursing and triage notes (agree or disagree)? Why? @ -I reviewed and agree with nursing and triage notes Were old charts reviewed (outside hosp., previous admission, EMS record, old EKG, old radiological studies, urgent care reports/EKG's, [place] health care facility records)? Report findings @ -No old charts were reviewed Differential Diagnosis (chest pain, altered mental status, abdominal pain women, abdominal pain men, vaginal bleeding, weakness, fever, dyspnea, syncope, headache, dizziness, GI bleed, back pain, seizure, CVA, palpatations, mental health, musculoskeletal)? @ -Skin ulceration, abscess, skin infection, potential for skin cancer including basal carcinoma, squamous cell carcinoma, this list is not all inclusive. EKG interpreted by me (3pts min.). @ -none X-rays interpreted by me (1pt min.). @ -None done CT interpreted by me (1pt min.). @ -None done U/S interpreted by me (1pt. min.). @ -None done What testing was considered but not performed or refused? (CT, X-rays, U/S, labs)? Why? @ -None What meds were considered but not given or refused? Why? @ -None Did you discuss the management of the patient with other professionals (professionals i.e. , PA, ENVIRONMENTAL JOURNALIST, lab, RT, psych nurse, nephrology social worker, bolt cutter, teacher, commercial account officer, telephonic nurse case manager)? Give summary @ -No Was smoking cessation discussed for >3mins.? @ -No Was critical care preformed (if so, how long)? @ -No Were there social determinants of health that impacted care today? How? (Homelessness, low income, unemployed, alcoholism, drug addiction, transportation, low edu. Level, literacy, decrease access to med. care, prison, rehab)? @ -No Was there de-escalation of care discussed even if they declined (Discuss DNR or withdrawal of care, Hospice)? DNR status @ -No What co-morbidities impacted this encounter? (DM, HTN, Smoking, COPD, CAD, Cancer, CVA, ARF, Chemo, Hep., AIDS, mental health diagnosis, sleep apnea, morbid obesity)? @ -None Was patient admitted / discharged? Hospital course, mention meds given and route, prescriptions, significant lab abnormalities, going to OR and other pertinent info. @ -68-year-old male with concern for a skin lesion on his neck. On examination patient noted to have a roughly half a centimeter ulceration on his neck. The areas are pearly and ulcerated. There is no overlying erythema. Area is mildly tender with deep palpation. There is no lymphadenopathy. Patient has a appointment scheduled with dermatology next week Monday for further evaluation. Recommend the patient keeps ointment. This area is not amendable to incision and drainage or aspiration. Patient is agreement with plan. All questions answered at bedside. Patient stable for discharge. Case discussed with Moon Mustafa Undiagnosed new problem with uncertain prognosis? @ -No Drug Therapy requiring intensive monitoring for toxicity (Heparin, Nitro, Insulin, Cardizem)? @ -No Were any procedures done? @ -No Diagnosis/symptom? @ -Skin lesion concerning for skin cancer Acute, or Chronic, or Acute on Chronic? @ -Acute Uncomplicated (without systemic symptoms) or Complicated (systemic symptoms)? @ -uncomplicated Side effects of treatment? @ -No Exacerbation, Progression, or Severe Exacerbation? @ -No Poses a threat to life or bodily function? How? (Chest pain, USA, OR, pneumonia, PE, COPD, DKA, ARF, appy, cholecystitis, CVA, Diverticulitis, Homicidal, Suicidal, threat to staff... and all critical care pts) @ -No Disposition Clinical Impression: Skin lesion of neck Narrative: Please return to the Emergency Department if symptoms worsen or any other concerns. Disposition: HOME SELF-CARE Condition: Good Instructions (If sedation given, give patient instructions): Skin Cancer Prevention (ED) Is patient prescribed a controlled substance at d/c from ED?: No Referrals: Yemi Vizcaino DO [Primary Care Provider] - 1-2 days Time of Disposition: 17:05
[2024-01-30 18:14] VITALS: BP 140/70; PULSE 70; RESP 18; TEMP 98.3
== END 2024-01-30 17:58 | disposition home or self-care (01) ==
LOC: EC 16:03
DX: L98.9 Disorder of the skin and subcutaneous tissue, unspecified (principal)
CPT/HCPCS: 99282

== ENCOUNTER → 2024-10-05 | Outpatient (CLI) | payer BC ==
[2024-10-05 13:06] LABS: Basophils # (A) 0.04 X 10*3/uL (0.00-0.10); Basophils % (A) 0.5 %; Eosinophils # (A) 0.12 X 10*3/uL (0.04-0.35); Eosinophils % (A) 1.4 %; HCT 42.4 % (39.6-50.0); HGB 13.8 g/dL (13.0-17.0); Lymphocytes # (A) 1.07 X 10*3/uL (0.90-5.00); Lymphocytes % (A) 12.8 %; MCH 32.3 pg (27.0-32.0); MCHC 32.5 g/dL (32.0-37.0); MCV 99.3 FL (80.0-97.0); Mean Platelet Volume 10.7 FL (9.5-12.2); Monocytes # (A) 0.59 X 10*3/uL (0.20-1.00); NRBC Per 100 WBC 0 X 10*3/uL (0.00-0.01); Neutrophils # (A) 6.53 X 10*3/uL (1.80-7.70); Neutrophils % (A) 78.1 %; Platelet Count 172 X 10*3/uL (140-440); RBC 4.27 X 10*6/uL (4.40-5.60); RDW 13.9 % (11.5-14.5); WBC 8.37 X 10*3/uL (4.50-10.00)
[2024-10-05 13:23] LABS: ALT 21 U/L (10-49); AST 20 U/L (14-35); Albumin 4.3 g/dL (3.8-4.9); Albumin/Globulin Ratio 1.65 Ratio (1.60-3.17); Alkaline Phosphatase 123 U/L (41-126); BUN/Creat Ratio 27.67 Ratio (12.00-20.00); Bilirubin, Conjugated 0.41 mg/dL (0.20-0.40); Bilirubin,Unconjugated 0.49 mg/dL (0.20-1.00); Blood Urea Nitrogen 24.9 mg/dL (9.0-27.0); Calcium 9.3 mg/dL (8.7-10.3); Chloride 100 mmol/L (96-109); Chol/HDL Ratio 2.46 Ratio; Globulin 2.6 g/dL (1.6-3.3); Glucose 117 mg/dL (70-110); LDL Cholesterol,Calculated 59.5 mg/dL (0.0-131.0); Potassium 4.6 mmol/L (3.5-5.5); Prostate Specific Antigen 0.26 ng/mL (0.000-4.500); Sodium 133 mmol/L (135-145); T4, Free (Free Thyroxine) 1.42 ng/dL (0.80-1.80); Total Bilirubin 0.9 mg/dL (0.3-1.2); Total Protein 6.9 g/dL (6.2-8.2); VLDL Calculation 11.74 mg/dL (5.00-40.00)
== END | disposition home or self-care (01) ==
LOC: LABWHC1 07:50
PROVIDERS: ATTEND Family Medicine
DX: Z12.5 Encounter for screening for malignant neoplasm of prostate (principal); I10 Essential (primary) hypertension; E11.65 Type 2 diabetes mellitus with hyperglycemia
CPT/HCPCS: 36415; 80048; 80061; 80076; 84153; 84439; 84443; 84481; 85025

== ENCOUNTER → 2024-10-22 | Outpatient (CLI) | payer BC ==
--- NOTE | 2024-10-23 08:05 | XR ---
EXAMINATION TYPE: XR toes LT DATE OF EXAM: 10/22/2024 5:40 PM COMPARISON: None CLINICAL INDICATION: Male, 69 years old with history of L03.032 CELLULITIS OF LEFT TOE; PHH, pain TECHNIQUE: XR toes LT examined in the AP, oblique, and lateral projections. FINDINGS: Soft tissue swelling without evidence of subcutaneous gas or erosion to suggest osteomyelitis. No shai dence of any acute osseous pathology. Multifocal degeneration changes throughout the joints of the fo ot with osteophyte formation and joint space narrowing. IMPRESSION: 1. No evidence of acute fracture. 2. Soft tissue swelling of the first digit, no evidence for osseous erosion. 3. Multifocal degeneration changes throughout the joints of the foot. [facility], , 10/23/2024 8:03 AM
== END | disposition home or self-care (01) ==
LOC: RADXRMAIN 17:20
PROVIDERS: ATTEND Family Medicine
DX: M19.072 Primary osteoarthritis, left ankle and foot (principal); L03.032 Cellulitis of left toe

== ENCOUNTER → 2025-03-13 | Outpatient (CLI) | payer BC ==
--- NOTE | 2025-03-13 09:43 | XR ---
EXAMINATION TYPE: XR chest 2V DATE OF EXAM: 03/13/2025 8:34 AM COMPARISON: 08/03/2020 CLINICAL INDICATION: Male, 69 years old with history of Z02.79 ENCOUNTER FOR ISSUE OF OTHER MEDICAL C ERTIF, TECHNIQUE: XR chest 2V view(s) obtained. FINDINGS: The heart size is normal. The pulmonary vasculature is normal. The lungs are clear. IMPRESSION: 1. No acute pulmonary process. [facility], , 03/13/2025 9:40 AM
== END | disposition home or self-care (01) ==
LOC: RADXRMAIN 08:18
PROVIDERS: ATTEND Colon & Rectal Surgery
DX: Z02.79 Encounter for issue of other medical certificate (principal)
CPT/HCPCS: 71046

== ENCOUNTER 2025-03-18 13:27 | Inpatient (IN) | payer BC ==
--- NOTE | 2025-03-18 14:46 | ED ---
Skin/Abscess/FB HPI - General Chief complaint: Skin/Abscess/Foreign Body Stated complaint: L foot pain Time Seen by Provider: 03/18/25 13:40 Source: patient, RN notes reviewed Mode of arrival: ambulatory Limitations: no limitations - History of Present Illness Initial comments: 69-year-old male with history of peripheral vascular disease and diabetes pre senting to the emergency department with with referral from wound clinic for concerns of left foot infection. Patient states that he had his great left toe amputated about a month ago following with a weaver needle loom in [place]. Patient is been following with the wound clinic, they are concerned that the wound is nonhealing and recommended that he reports Emergency Department for admission for IV antibiotics and infectious disease consult. Patient states that he has excruciating pain of the foot. - Related Data Home Medications Medication Instructions Recorded Confirmed Aspirin [Adult Low Dose Aspirin EC] 81 mg PO DAILY 12/02/19 03/18/25 Atorvastatin [Lipitor] 40 mg PO DAILY 12/02/19 03/18/25 Metoprolol Tartrate [Lopressor] 50 mg PO DAILY 12/02/19 03/18/25 lisinopriL [Prinivil] 5 mg PO DAILY 12/02/19 03/18/25 Acetaminophen-Codeine 300-30mg 1 tab PO Q6H PRN 03/18/25 03/18/25 [Tylenol w/codeine #3] Clopidogrel [Plavix] 75 mg PO DAILY 03/18/25 03/18/25 Dapagliflozin Propanediol [Farxiga] 10 mg PO DAILY 03/18/25 03/18/25 Furosemide [Lasix] 20 mg PO DAILY 03/18/25 03/18/25 Gabapentin [Neurontin] 300 mg PO TID 03/18/25 03/18/25 glipiZIDE/METFORMIN HCL 1 tab PO BID 03/18/25 03/18/25 [glipiZIDE/METFORMIN HCL 2.5-500 mg] Allergies Allergy/AdvReac Type Severity Reaction Status Date / Time No Known Allergies Allergy Verified 03/18/25 16:55 Review of Systems ROS Statement: Those systems with pertinent positive or pertinent negative responses have been documented in the HPI. ROS Other: All systems not noted in ROS Statement are negative. Past Medical History Past Medical History: Chest Pain / Angina, Diabetes Mellitus, Hyperlipidemia, Hypertension, Myocardial Infarction ([place]) Last Myocardial Infarction Date:: 2004 History of Any Multi-Drug Resistant Organisms: None Reported Past Surgical History: Heart Catheterization With Stent, Hernia Repair Additional Past Surgical History / Comment(s): Stents 2004, 2011, double aortic anerysym surgery. Past Anesthesia/Blood Transfusion Reactions: No Reported Reaction Date of Last Stent Placement:: 2011 Past Psychological History: No Psychological Hx Reported Smoking Status: Never smoker Past Alcohol Use History: Occasional Past Drug Use History: None Reported - Past Family History Father Family Medical History: No Reported History General Exam Limitations: no limitations Neck exam: Present: normal inspection. Absent: tenderness, meningismus, lymp hadenopathy Respiratory exam: Present: normal lung sounds bilaterally. Absent: respiratory distress, wheezes, rales, rhonchi, stridor Cardiovascular Exam: Present: regular rate, normal rhythm, normal heart sounds. Absent: systolic murmur, diastolic murmur, rubs, gallop, clicks GI/Abdominal exam: Present: soft, normal bowel sounds. Absent: distended, tenderness, guarding, rebound, rigid Left Foot/Toe exam: Present: tenderness, swelling, erythema, amputation Neurovascular tendon exam: Present: no vascular compromise. Absent: pulse deficit Gait: not tested/not observed Back exam: Present: normal inspection Course Vital Signs 03/18/25 13:31 Temperature 97.5 F L Pulse Rate 91 Respiratory 18 Rate Blood Pressure 99/61 O2 Sat by Pulse 96 Oximetry Medical Decision Making - Medical Decision Making Was pt. sent in by a medical professional or institution (, PA, COMMISSARY MANAGER, urgent care, hospital, or shelter...) When possible be specific @ -Patient was advised by wound center to report to emergency room for further evaluation. Did you speak to anyone other than the patient for history (EMS, parent, family, police, friend...)? What history was obtained from this source @ -No Did you review nursing and triage notes (agree or disagree)? Why? @ -I reviewed and agree with nursing and triage notes Were old charts reviewed (outside hosp., previous admission, EMS record, old EKG, old radiological studies, urgent care reports/EKG's, shelter records)? Report findings @ -No old charts were reviewed Differential Diagnosis (chest pain, altered mental status, abdominal pain women, abdominal pain men, vaginal bleeding, weakness, fever, dyspnea, syncope, headache, dizziness, GI bleed, back pain, seizure, CVA, palpatations, mental health, musculoskeletal)? @ -Osteomyelitis, cellulitis, peripheral vascular disease, this list not all inclusive EKG interpreted by me (3pts min.). @ -none X-rays interpreted by me (1pt min.). @ -X-ray imaging of the left foot reveals postsurgical changes of the great toe, soft tissue is mildly edematous with no fracture or dislocation CT interpreted by me (1pt min.). @ -None done U/S interpreted by me (1pt. min.). @ -None done What testing was considered but not performed or refused? (CT, X-rays, U/S, labs)? Why? @ -None What meds were considered but not given or refused? Why? @ -None Did you discuss the management of the patient with other professionals (professionals i.e. , PA, COMMISSARY MANAGER, lab, RT, psych nurse, drug abuse social worker, microchip specialist, teacher, examining officer, home health care case manager)? Give summary @ -I spoke with Mariaelena from [facility] was agreed to meet the patient started on IV antibiotics and infectious ease on consult. Was smoking cessation discussed for >3mins.? @ -No Was critical care preformed (if so, how long)? @ -No Were there social determinants of health that impacted care today? How? (Homelessness, low income, unemployed, alcoholism, drug addiction, transportation, low edu. Level, literacy, decrease access to med. care, [facility], rehab)? @ -No Was there de-escalation of care discussed even if they declined (Discuss DNR or withdrawal of care, Hospice)? DNR status @ -No What co-morbidities impacted this encounter? (DM, HTN, Smoking, COPD, CAD, Cancer, CVA, ARF, Chemo, Hep., AIDS, mental health diagnosis, sleep apnea, morbid obesity)? @ -None Was patient admitted / discharged? Hospital course, mention meds given and route, prescriptions, significant lab abnormalities, going to OR and other pertinent info. @ -Admitted. 69-year-old male presenting to the ER with referral from wound care for concerns of left foot nonhealing post amputation. There is noted infection post amputation site with severe tenderness. Pedal pulses 1+. Vitals are stable. Laboratory test including CBC, CMP is unremarkable. X-ray shows no signs osteomyelitis. With concern for clinical evaluation of severe infection patient will be mated for IV antibiotics and consult to infectious disease. Case discussed with Dr. Christianson Undiagnosed new problem with uncertain prognosis? @ -No Drug Therapy requiring intensive monitoring for toxicity (Heparin, Nitro, Insulin, Cardizem)? @ -No Were any procedures done? @ -No Diagnosis/symptom? @ -Cellulitis Acute, or Chronic, or Acute on Chronic? @ -Acute Uncomplicated (without systemic symptoms) or Complicated (systemic symptoms)? @ -Complicated Side effects of treatment? @ -No Exacerbation, Progression, or Severe Exacerbation? @ -No Poses a threat to life or bodily function? How? (Chest pain, [place], [place], pneumonia, PE, COPD, DKA, ARF, appy, cholecystitis, CVA, Diverticulitis, Homicidal, Suicidal, threat to staff... and all critical care pts) @ -No - Lab Data Result diagrams: 03/18/25 15:29 03/18/25 15:29 Lab Results 03/18/25 03/18/25 03/18/25 Range/Units 15:29 15:29 15:29 WBC 4.73 (4.50-10.00) 10*3/uL RBC 3.11 L (4.40-5.60) 10*6/uL Hgb 10.0 L (13.0-17.0) g/dL Hct 31.3 L (39.6-50.0) % MCV 100.6 H (80.0-97.0) fL MCH 32.2 H (27.0-32.0) pg MCHC 31.9 L (32.0-37.0) g/dL Plt Count 206 (140-440) 10*3/uL MPV 9.6 (9.5-12.2) fL Immature Gran % (Auto) 0.2 % Neutrophils % 68.7 % Lymphocytes % 14.0 % Monocytes % 10.4 % Eosinophils % 5.9 % Basophils % 0.8 % Immature Gran # 0.01 (0.00-0.04) 10*3/uL Neutrophils # 3.25 (1.80-7.70) 10*3/uL Lymphocytes # 0.66 L (0.90-5.00) 10*3/uL Monocytes # 0.49 (0.20-1.00) 10*3/uL Eosinophils # 0.28 (0.04-0.35) 10*3/uL Basophils # 0.04 (0.00-0.10) 10*3/uL Sodium 140 (137-145) mmol/L Potassium 4.9 (3.5-5.1) mmol/L Chloride 107 (98-107) mmol/L Carbon Dioxide 22 (22-30) mmol/L Anion Gap 11 mmol/L BUN 27 H (9-20) mg/dL Creatinine 0.97 (0.66-1.25) mg/dL Est GFR (CKD-EPI)AfAm >90 (>60 ml/min/1.73 sqM) Est GFR (CKD-EPI)NonAf 80 (>60 ml/min/1.73 sqM) Glucose 121 H (74-99) mg/dL Plasma Lactic Acid Moises 1.2 (0.7-2.0) mmol/L Calcium 9.2 (8.4-10.2) mg/dL Total Bilirubin 0.6 (0.2-1.3) mg/dL AST 24 (17-59) U/L ALT 16 (4-49) U/L Alkaline Phosphatase 156 H (38-126) U/L C-Reactive Protein 1.5 H (<1.0) mg/dL Total Protein 7.0 (6.3-8.2) g/dL Albumin 3.8 (3.5-5.0) g/dL Disposition Clinical Impression: Cellulitis of foot Disposition: ADMITTED IP TO [facility] Condition: Stable Referrals: Yemi Vizcaino DO [Primary Care Provider] - 1-2 days Decision to Admit Reason: Admit from EC Decision Date: 03/18/25 Decision Time: 17:25
--- NOTE | 2025-03-18 15:27 | XR ---
EXAMINATION TYPE: XR foot complete LT DATE OF EXAM: 03/18/2025 3:05 PM COMPARISON: None. CLINICAL INDICATION: Male, 69 years old with history of amputation, pain, infection, pain TECHNIQUE: Frontal, lateral, and oblique images of the left foot are obtained. FINDINGS: Postsurgical change about the great toe. Soft tissues are mildly edematous. No fracture or dislocation. IMPRESSION: Amputation of the great toe. [facility], , 03/18/2025 3:25 PM
[2025-03-18 15:46] LABS: Basophils # (A) 0.04 10*3/uL (0.00-0.10); Basophils % (A) 0.8 %; Eosinophils # (A) 0.28 10*3/uL (0.04-0.35); Eosinophils % (A) 5.9 %; HCT 31.3 % (39.6-50.0); HGB 10.0 g/dL (13.0-17.0); Lymphocytes # (A) 0.66 10*3/uL (0.90-5.00); Lymphocytes % (A) 14.0 %; MCH 32.2 pg (27.0-32.0); MCHC 31.9 g/dL (32.0-37.0); MCV 100.6 fL (80.0-97.0); Monocytes # (A) 0.49 10*3/uL (0.20-1.00); Monocytes % (A) 10.4 %; Neutrophils # (A) 3.25 10*3/uL (1.80-7.70); Neutrophils % (A) 68.7 %; Platelet Count 206 10*3/uL (140-440); RBC 3.11 10*6/uL (4.40-5.60); RDW 15.9 % (11.5-14.5); WBC 4.73 10*3/uL (4.50-10.00)
[2025-03-18] MEDS: MORPHINE SULFATE 4 MG/ML SYRINGE IVP STA (15:55)
[2025-03-18 16:09] LABS: Anion Gap 11 mmol/L; Blood Urea Nitrogen 27 mg/dL (9-20); Carbon Dioxide 22 mmol/L (22-30); Chloride 107 mmol/L (98-107); Glucose 121 mg/dL (74-99); Potassium 4.9 mmol/L (3.5-5.1); Sodium 140 mmol/L (137-145)
[2025-03-18 16:10] LABS: ALT 16 U/L (4-49); AST 24 U/L (17-59); African American GFR (CKD) >90 (>60 ml/min/1.73 sqM); Albumin 3.8 g/dL (3.5-5.0); Alkaline Phosphatase 156 U/L (38-126); Calcium 9.2 mg/dL (8.4-10.2); Non-African American GFR(CKD) 80 (>60 ml/min/1.73 sqM); Total Protein 7.0 g/dL (6.3-8.2)
[2025-03-18] MEDS ORDERED: VANCOMYCIN IV PER PHARMACY 1 EACH MISC MISCELLANE PRN (16:39)
[2025-03-18] MEDS ORDERED: ACETAMINOPHEN TAB 325 MG TAB PO PRN (17:25)
[2025-03-18] MEDS ORDERED: NALOXONE 0.4 MG/ML 1 ML VIAL IV PRN (17:25)
[2025-03-18] MEDS: VANCOMYCIN 1,250 MG in SODIUM CHLORIDE 0.9% 250 ML IVPB STA (17:42)
[2025-03-18] MEDS: HYDROcodone/APAP 5-325MG 1 EACH TAB PO PRN (17:59)
[2025-03-18 21:17] LABS: Glucose,Whole Blood 223 mg/dL (70-110)
[2025-03-19] MEDS ORDERED: VANCOMYCIN TROUGH DUE 1 EACH MISC MISCELLANE ONE (05:00)
[2025-03-19] MEDS: VANCOMYCIN 1,250 MG in SODIUM CHLORIDE 0.9% 250 ML IVPB SCH (05:42)
[2025-03-19 07:03] LABS: Glucose,Whole Blood 122 mg/dL (70-110)
[2025-03-19 08:22] LABS: Basophils # (A) 0.03 X 10*3/uL (0.00-0.10); Basophils % (A) 0.7 %; Eosinophils # (A) 0.16 X 10*3/uL (0.04-0.35); Eosinophils % (A) 4.0 %; HCT 31.6 % (39.6-50.0); HGB 9.8 g/dL (13.0-17.0); Immature Grans, Automated 0.50 %; Lymphocytes # (A) 0.66 X 10*3/uL (0.90-5.00); Lymphocytes % (A) 16.3 %; MCH 31.0 pg (27.0-32.0); MCHC 31.0 g/dL (32.0-37.0); MCV 100.0 FL (80.0-97.0); Monocytes # (A) 0.47 X 10*3/uL (0.20-1.00); Monocytes % (A) 11.6 %; NRBC Per 100 WBC 0 X 10*3/uL (0.00-0.01); Neutrophils # (A) 2.70 X 10*3/uL (1.80-7.70); Neutrophils % (A) 66.9 %; Platelet Count 178 X 10*3/uL (140-440); RBC 3.16 X 10*6/uL (4.40-5.60); RDW 15.5 % (11.5-14.5); WBC 4.04 X 10*3/uL (4.50-10.00)
[2025-03-19 08:32] LABS: ALT 16 U/L (10-49); AST 19 U/L (14-35); Albumin 3.6 g/dL (3.8-4.9); Albumin/Globulin Ratio 1.24 Ratio (1.60-3.17); Alkaline Phosphatase 131 U/L (41-126); Anion Gap 9.60 mmol/L (4.00-12.00); BUN/Creat Ratio 25.00 Ratio (12.00-20.00); Blood Urea Nitrogen 20.0 mg/dL (9.0-27.0); Calcium 8.6 mg/dL (8.7-10.3); Carbon Dioxide 21.4 mmol/L (21.6-31.8); Chloride 106 mmol/L (96-109); Globulin 2.9 g/dL (1.6-3.3); Glucose 122 mg/dL (70-110); Potassium 4.9 mmol/L (3.5-5.5); Sodium 137 mmol/L (135-145); Total Protein 6.5 g/dL (6.2-8.2)
[2025-03-19 12:19] LABS: Glucose,Whole Blood 116 mg/dL (70-110)
[2025-03-19] MEDS: GABAPENTIN 300 MG CAP PO SCH (14:44)
[2025-03-19] MEDS: HYDROmorphone 0.5 MG/0.5 ML SYRINGE IVP PRN (14:44)
--- NOTE | 2025-03-19 15:05 | HP ---
HISTORY AND PHYSICAL CHIEF COMPLAINT: Left foot pain and infection. HISTORY OF PRESENT ILLNESS: This is a 69-year-old gentleman with a past medical history of multiple medical problems of peripheral vascular disease, had a recent surgery with the left great toe amputation about a month in [facility] after being referred by pouch maker. The patient was found to have pain and swelling and because of the multiple complications, the wound was nonhealing and the patient came to [facility], admitted for further evaluation and treatment. There is no history of any fever, rigors, or chills at this time. Cultures are pending. The previous wound cultures in October, polymicrobial showed Enterobacter cloacae, Staph aureus, and Morganella morganii. PAST MEDICAL HISTORY: Reviewed. Include chest pain, diabetes, hypertension, and hyperlipidemia. Rest of the history and chart is also reviewed. HOME MEDICATIONS: Prinivil. Dose and rest of medications reviewed. ALLERGIES: None. FAMILY HISTORY: No history of heart disease or strokes in the family. SOCIAL HISTORY: Occasional alcohol. REVIEW OF SYSTEMS: A 14-point review of systems negative except as mentioned earlier. PHYSICAL EXAMINATION: VITAL SIGNS: Pulse 90, blood pressure 119/70, and respirations 18. HEENT: Conjunctivae normal. NECK: No JVD. CARDIOVASCULAR: S1, S2. RESPIRATIONS: Breath sounds diminished at the bases. No rhonchi. No crackles. ABDOMEN: Soft, nontender. LEGS: Significant infection of the right foot present status post right great toe amputation. LABORATORY DATA: Reviewed. ASSESSMENT: 1. left foot infection with cellulitis. 2. History of recent right great toe amputation. 3. Anemia. 4. Mild leukopenia. 5. Diabetes mellitus, type 2. 6. Hypertension. 7. Hyperlipidemia. 8. History of myocardial infarction. 9. History of CAD stent. 10.History of peripheral vascular disease. RECOMMENDATIONS: This is a 69-year-old gentleman who presented with multiple complex medical issues. We will monitor the patient closely. I would recommend IV antibiotics. The patient is started on IV vancomycin. We also recommend obtain cultures and Infectious Disease evaluation. We will also recommend Vascular consultation. The patient most likely require wound care and outpatient IV antibiotics also. Resume the home medications. Guarded prognosis, because of multiple complex medical issues. Further recommendations to follow. See orders. We will monitor blood sugar also closely. MMODL / IJN: [id number] / RONY
[2025-03-19 15:09] VITALS: BMI 24.4
[2025-03-19] MEDS: AMPICILLIN-SULBACTAM 3 GM in SODIUM CHLORIDE 0.9% 100 ML IVPB SCH (16:57)
[2025-03-19] MEDS: INSULIN LISPRO (HumaLOG) 100 UNIT/ML 10 mL VL SQ SCH (17:09)
[2025-03-19 17:16] LABS: Glucose,Whole Blood 108 mg/dL (70-110)
[2025-03-19 20:16] LABS: Glucose,Whole Blood 182 mg/dL (70-110)
[2025-03-19] MEDS: glipiZIDE 5 MG TAB PO SCH (20:56)
[2025-03-19] MEDS: metFORMIN 500 MG TAB PO SCH (20:56)
--- NOTE | 2025-03-19 22:29 | P.CONS ---
History of Present Illness - Reason for Consult Consult date: 03/19/25 Left big toe cellulitis post amputation Requesting physician: Traci Hameed - Chief Complaint Left big toe nonhealing wound x weeks - History of Present Illness Patient is a 69-year-old male with a past medical history significant for diabetes mellitus hypertension hyperlipidemia AR patient did have a history of left big toe amputation apparently done about a month ago by his psychiatric aides teacher in [place] and the patient been following with the wound care patient was noticed to have nonhealing of the wound and there was concern for secondary infection for the patient was advised to go to the hospital patient denies high- grade fever or any chills patient denies having any headache no chest pain shortness of breath or cough patient denies having any abdominal pain no nausea vomiting no abdominal pain no diarrhea patient did have an acute pain to the left big toe amputation site wound mild to moderate intensity denies any foul- smelling drainage I did not recall he has been on antibiotic in the recent past on presentation to the hospital patient was afebrile he was mildly tachycardic but not hypotensive or hypoxic patient did have a white count of 4.04 his creatinine 0.8 electrolytes are normal liver enzymes are normal CRP is 1.5 local cultures obtained patient did have x-ray of the foot did not show any bony changes patient was started on vancomycin infectious disease was consulted for further management of antibiotic therapy Review of Systems Positive point and negatives has been mentioned in the HPI, complete review of systems was performed and all other systems are negative Past Medical History Past Medical History: Chest Pain / Angina, Diabetes Mellitus, Hyperlipidemia, H ypertension, Myocardial Infarction ([place]) Last Myocardial Infarction Date:: 2004 History of Any Multi-Drug Resistant Organisms: None Reported Past Surgical History: Heart Catheterization With Stent, Hernia Repair Additional Past Surgical History / Comment(s): Stents 2004, 2011, double aortic anerysym surgery. Past Anesthesia/Blood Transfusion Reactions: No Reported Reaction Date of Last Stent Placement:: 2011 Past Psychological History: No Psychological Hx Reported Smoking Status: Never smoker Past Alcohol Use History: Occasional Additional Past Alcohol Use History / Comment(s): Quit smoking in 2011, smoked X40 yrs. Past Drug Use History: None Reported - Past Family History Father Family Medical History: No Reported History Medications and Allergies Home Medications Medication Instructions Recorded Confirmed Type Aspirin [Adult Low Dose Aspirin EC] 81 mg PO DAILY 12/02/19 03/18/25 History Atorvastatin [Lipitor] 40 mg PO DAILY 12/02/19 03/18/25 History Metoprolol Tartrate [Lopressor] 50 mg PO DAILY 12/02/19 03/18/25 History lisinopriL [Prinivil] 5 mg PO DAILY 12/02/19 03/18/25 History Acetaminophen-Codeine 300-30mg 1 tab PO Q6H PRN 03/18/25 03/18/25 History [Tylenol w/codeine #3] Clopidogrel [Plavix] 75 mg PO DAILY 03/18/25 03/18/25 History Dapagliflozin Propanediol [Farxiga] 10 mg PO DAILY 03/18/25 03/18/25 History Furosemide [Lasix] 20 mg PO DAILY 03/18/25 03/18/25 History Gabapentin [Neurontin] 300 mg PO TID 03/18/25 03/18/25 History glipiZIDE/METFORMIN HCL 1 tab PO BID 03/18/25 03/18/25 History [glipiZIDE/METFORMIN HCL 2.5-500 mg] Allergies Allergy/AdvReac Type Severity Reaction Status Date / Time No Known Allergies Allergy Verified 03/18/25 16:55 Physical Exam Vitals: Vital Signs Temp Pulse Pulse Resp BP BP Pulse Ox 03/19/25 08:30 90 18 03/19/25 07:56 90 18 03/19/25 07:46 97.5 F L 90 18 119/71 03/19/25 01:17 97.9 F 87 16 138/86 98 03/18/25 21:20 97.6 F 93 16 132/74 97 03/18/25 20:39 97.9 F 98 16 121/79 99 03/18/25 20:04 101 H 18 114/71 99 03/18/25 18:00 86 18 127/82 98 03/18/25 13:31 97.5 F L 91 18 99/61 96 Intake and Output 03/18/25 03/19/25 03/19/25 22:59 06:59 14:59 Intake Total 540 Output Total 1400 300 Balance -860 -300 Intake: Oral 540 Output: Urine 1400 300 Other: Voiding Method Urinal Urinal Weight 70.76 kg GENERAL DESCRIPTION: Elderly male lying in bed, no distress. No tachypnea or accessory muscle of respiration use. HEENT: Shows Pallor , no scleral icterus. Oral mucous membrane is dry. No pharyngeal erythema or thrush NECK: Trachea central, no thyromegaly. LUNGS: Unlabored breathing. Clear to auscultation anteriorly. No wheeze or crackle. HEART: S1, S2, regular rate and rhythm. No loud murmur ABDOMEN: Soft, no tenderness , guarding or rigidity, no organomegaly EXTREMITIES: Left big toe amputation site with a nonhealing wound wound base with the slough tissue no foul-smelling drainage was noticed SKIN: No rash, no masses palpable. NEUROLOGICAL: The patient is awake, alert, oriented x3, mood and affect normal. Results CBC & Chem 7: 03/19/25 05:49 03/19/25 05:49 Labs: Abnormal Lab Results - Last 24 Hours (Table) 03/18/25 03/18/25 03/18/25 Range/Units 15:29 15:29 21:16 WBC (4.50-10.00) X 10*3/uL RBC 3.11 L (4.40-5.60) 10*6/uL Hgb 10.0 L (13.0-17.0) g/dL Hct 31.3 L (39.6-50.0) % MCV 100.6 H (80.0-97.0) fL MCH 32.2 H (27.0-32.0) pg MCHC 31.9 L (32.0-37.0) g/dL RDW (11.5-14.5) % Lymphocytes # 0.66 L (0.90-5.00) 10*3/uL Carbon Dioxide (21.6-31.8) mmol/L BUN 27 H (9-20) mg/dL BUN/Creatinine Ratio (12.00-20.00) Ratio Glucose 121 H (74-99) mg/dL POC Glucose (mg/dL) 223 H (70-110) mg/dL Calcium (8.7-10.3) mg/dL Alkaline Phosphatase 156 H (38-126) U/L C-Reactive Protein 1.5 H (<1.0) mg/dL Albumin (3.8-4.9) g/dL Albumin/Globulin Ratio (1.60-3.17) Ratio 0703/19/25 03/19/25 Range/Units 05:49 05:49 07:01 WBC 4.04 L (4.50-10.00) X 10*3/uL RBC 3.16 L (4.40-5.60) 10*6/uL Hgb 9.8 L (13.0-17.0) g/dL Hct 31.6 L (39.6-50.0) % MCV 100.0 H (80.0-97.0) fL MCH (27.0-32.0) pg MCHC 31.0 L (32.0-37.0) g/dL RDW 15.5 H (11.5-14.5) % Lymphocytes # 0.66 L (0.90-5.00) 10*3/uL Carbon Dioxide 21.4 L (21.6-31.8) mmol/L BUN (9-20) mg/dL BUN/Creatinine Ratio 25.00 H (12.00-20.00) Ratio Glucose 122 H (74-99) mg/dL POC Glucose (mg/dL) 122 H (70-110) mg/dL Calcium 8.6 L (8.7-10.3) mg/dL Alkaline Phosphatase 131 H (38-126) U/L C-Reactive Protein (<1.0) mg/dL Albumin 3.6 L (3.8-4.9) g/dL Albumin/Globulin Ratio 1.24 L (1.60-3.17) Ratio Assessment and Plan (1) Left great toe amputee Current Visit: Yes Status: Acute Code(s): Z89.412 - ACQUIRED ABSENCE OF LEFT GREAT TOE SNOMED Code(s): 644460978 (2) Diabetic ulcer of left foot Current Visit: Yes Status: Acute Code(s): E11.621 - TYPE 2 DIABETES MELLITUS WITH FOOT ULCER; L97.529 - NON-PRESSURE CHRONIC ULCER OTH PRT LEFT FOOT W UNSP SEVERITY SNOMED Code(s): 589546801 (3) Diabetic infection of left foot Current Visit: Yes Status: Acute Code(s): E11.628 - TYPE 2 DIABETES MELLITUS WITH OTHER SKIN COMPLICATIONS; L08.9 - LOCAL INFECTION OF THE SKIN AND SUBCUTANEOUS TISSUE, UNSP SNOMED Code(s): 523691080 (4) Cellulitis of left foot Current Visit: Yes Status: Acute Code(s): L03.116 - CELLULITIS OF LEFT LOWER LIMB SNOMED Code(s): 29307116890823012 Plan: 1patient with a chronic nonhealing wound to the left big toe amputation site with initial evaluation in about a month ago now admitted to hospital concerning for worsening wound nonhealing concern for secondary wound infection likely from gram-positive skin bob however gram-negative infection not entirely excluded. 2patient benefit from vascular surgery evaluation for debridement and deep culture. 3patient empirically treated with vancomycin while watching kidney function closely however will add Unasyn to cover for the anaerobes and gram-negative. 4local wound care with the Santyl followed by moist dressing change daily. We will follow on clinical condition and cultures to further adjust medication if needed Thank you for this consultation we will follow the patient along with you Dictation was produced using [employer] dictation software. please excuse any grammatical, word or spelling errors. Time with Patient: Greater than 30
[2025-03-20] MEDS: VANCOMYCIN TROUGH DUE 1 EACH MISC MISCELLANE ONE (05:38)
[2025-03-20 05:56] LABS: African American GFR (CKD) >90 (>60 ml/min/1.73 sqM); Anion Gap 11 mmol/L; Blood Urea Nitrogen 18 mg/dL (9-20); Calcium 9.6 mg/dL (8.4-10.2); Carbon Dioxide 24 mmol/L (22-30); Chloride 104 mmol/L (98-107); Glucose 116 mg/dL (74-99); Non-African American GFR(CKD) >90 (>60 ml/min/1.73 sqM); Potassium 4.6 mmol/L (3.5-5.1); Sodium 139 mmol/L (137-145)
[2025-03-20 07:13] LABS: Glucose,Whole Blood 123 mg/dL (70-110)
[2025-03-20 07:50] LABS: Basophils # (A) 0.03 X 10*3/uL (0.00-0.10); Basophils % (A) 0.6 %; Eosinophils # (A) 0.17 X 10*3/uL (0.04-0.35); Eosinophils % (A) 3.7 %; HCT 35.2 % (39.6-50.0); HGB 11.0 g/dL (13.0-17.0); Immature Grans, Automated 0.20 %; Lymphocytes # (A) 0.66 X 10*3/uL (0.90-5.00); Lymphocytes % (A) 14.2 %; MCH 30.9 pg (27.0-32.0); MCHC 31.3 g/dL (32.0-37.0); MCV 98.9 FL (80.0-97.0); Monocytes # (A) 0.42 X 10*3/uL (0.20-1.00); Monocytes % (A) 9.0 %; NRBC Per 100 WBC 0 X 10*3/uL (0.00-0.01); Neutrophils # (A) 3.36 X 10*3/uL (1.80-7.70); Neutrophils % (A) 72.3 %; Platelet Count 195 X 10*3/uL (140-440); RBC 3.56 X 10*6/uL (4.40-5.60); RDW 15.5 % (11.5-14.5); WBC 4.65 X 10*3/uL (4.50-10.00)
[2025-03-20] MEDS: FUROSEMIDE 20 MG TAB PO SCH (08:34)
[2025-03-20] MEDS: CLOPIDOGREL 75 MG TAB PO SCH (08:34)
[2025-03-20] MEDS: ATORVASTATIN 40 MG TAB PO SCH (08:34)
[2025-03-20] MEDS: METOPROLOL TARTRATE 50 MG TAB PO SCH (08:34)
[2025-03-20] MEDS: DAPAGLIFLOZIN PROPANEDIOL 10 MG TABLET PO SCH (08:34)
[2025-03-20] MEDS: ASPIRIN 81 MG PO SCH (08:34)
[2025-03-20] MEDS: COLLAGENASE 250 UNIT/GM OINTMENT 30 GM TUBE TOPICAL SCH (08:35)
--- NOTE | 2025-03-20 10:53 | P.GSCN ---
History of Present Illness Consult date: 03/20/25 Reason for Consult: Left great toe amputation infection Requesting physician: Riana Araya History of present illness: This is a pleasant 69-year-old male with a past medical history of diabetes mellitus, peripheral arterial disease, former smoker and recent left great toe amputation. Patient sees a pants busheler at his [facility] who referred him down to [facility] for toe amputation for nonhealing wound and patient has also followed with Dr. Ayala lithographic general worker who had done left lower extremity revascularization with stenting. No records currently available. Patient presented to the hospital with concern for infection of his amputation site. He states that he has been getting discharge and foul odor. He was admitted for infectious disease consultation and antibiotic therapy as well as consultation to vascular surgery for nonhealing wound and concern for infection. Patient states he does have pain at the amputation site. He has been a diabetic for about 14 years. He was a smoker for 40 years 3 packs/day, quit about 15 years ago. He has been afebrile. Foot x-ray shows vascular stent on the lateral aspect of left ankle. Soft tissue mildly edematous. No fracture or dislocation. Review of Systems A 14 point review systems was completed all pertinent positives and negatives as stated in the HPI. Past Medical History Past Medical History: Chest Pain / Angina, Diabetes Mellitus, Hyperlipidemia, Hypertension, Myocardial Infarction (NC) Last Myocardial Infarction Date:: 2004 History of Any Multi-Drug Resistant Organisms: None Reported Past Surgical History: Heart Catheterization With Stent, Hernia Repair Additional Past Surgical History / Comment(s): Stents 2004, 2011, double aortic anerysym surgery. Past Anesthesia/Blood Transfusion Reactions: No Reported Reaction Date of Last Stent Placement:: 2011 Past Psychological History: No Psychological Hx Reported Smoking Status: Never smoker Past Alcohol Use History: Occasional Additional Past Alcohol Use History / Comment(s): Quit smoking in 2011, smoked X40 yrs. Past Drug Use History: None Reported - Past Family History Father Family Medical History: No Reported History Medications and Allergies Home Medications Medication Instructions Recorded Confirmed Type Aspirin [Adult Low Dose Aspirin EC] 81 mg PO DAILY 12/02/19 03/18/25 History Atorvastatin [Lipitor] 40 mg PO DAILY 12/02/19 03/18/25 History Metoprolol Tartrate [Lopressor] 50 mg PO DAILY 12/02/19 03/18/25 History lisinopriL [Prinivil] 5 mg PO DAILY 12/02/19 03/18/25 History Acetaminophen-Codeine 300-30mg 1 tab PO Q6H PRN 03/18/25 03/18/25 History [Tylenol w/codeine #3] Clopidogrel [Plavix] 75 mg PO DAILY 03/18/25 03/18/25 History Dapagliflozin Propanediol [Farxiga] 10 mg PO DAILY 03/18/25 03/18/25 History Furosemide [Lasix] 20 mg PO DAILY 03/18/25 03/18/25 History Gabapentin [Neurontin] 300 mg PO TID 03/18/25 03/18/25 History glipiZIDE/METFORMIN HCL 1 tab PO BID 03/18/25 03/18/25 History [glipiZIDE/METFORMIN HCL 2.5-500 mg] Allergies Allergy/AdvReac Type Severity Reaction Status Date / Time No Known Allergies Allergy Verified 03/18/25 16:55 Surgical - Exam Vital Signs Temp Pulse Resp BP Pulse Ox 97.5 F L 91 18 99/61 96 03/18/25 13:31 03/18/25 13:31 03/18/25 13:31 03/18/25 13:31 03/18/25 13:31 General appearance: The patient is alert, oriented, appears in no acute distress. HET: Head is normocephalic and atraumatic. Pupils are equal and reactive. Neck: Supple. Heart: Regular. Lungs: Equal expansion, normal respiratory effort. Abdomen: Soft, nontender, nondistended. Extremities: Palpable femoral, popliteal, PT and DP pulse left lower extremity. Left great toe amputation with slough tissue, foul odor surrounding erythema. Distal tip of second toe with nonviable tissue. Neurological: No focal deficits. Strength and sensation are grossly intact. Results - Labs 03/20/25 05:06 03/20/25 05:06 Abnormal Lab Results - Last 24 Hours (Table) 03/19/25 03/19/25 03/20/25 Range/Units 12:14 20:14 05:06 RBC (4.40-5.60) X 10*6/uL Hgb (13.0-17.0) g/dL Hct (39.6-50.0) % MCV (80.0-97.0) FL MCHC (32.0-37.0) g/dL RDW (11.5-14.5) % Lymphocytes # (0.90-5.00) X 10*3/uL Glucose 116 H (74-99) mg/dL POC Glucose (mg/dL) 116 H 182 H (70-110) mg/dL 03/20/25 03/20/25 Range/Units 05:06 07:03 RBC 3.56 L (4.40-5.60) X 10*6/uL Hgb 11.0 L (13.0-17.0) g/dL Hct 35.2 L (39.6-50.0) % MCV 98.9 H (80.0-97.0) FL MCHC 31.3 L (32.0-37.0) g/dL RDW 15.5 H (11.5-14.5) % Lymphocytes # 0.66 L (0.90-5.00) X 10*3/uL Glucose (74-99) mg/dL POC Glucose (mg/dL) 123 H (70-110) mg/dL Microbiology - Last 24 Hours (Table) 03/18/25 17:33 Blood Culture - Preliminary Blood 03/18/25 18:00 Gram Stain - Preliminary Foot - Left Diabetes panel 03/20/25 03/20/25 Range/Units 05:06 05:06 Sodium 139 (137-145) mmol/L Potassium 4.6 (3.5-5.1) mmol/L Chloride 104 (98-107) mmol/L Carbon Dioxide 24 (22-30) mmol/L BUN 18 (9-20) mg/dL Creatinine 0.76 (0.66-1.25) mg/dL Glucose 116 H (74-99) mg/dL Hemoglobin A1c 5.7 (<=6.0) % Calcium 9.6 (8.4-10.2) mg/dL Calcium panel 03/20/25 Range/Units 05:06 Calcium 9.6 (8.4-10.2) mg/dL Pituitary panel 03/20/25 Range/Units 05:06 Sodium 139 (137-145) mmol/L Potassium 4.6 (3.5-5.1) mmol/L Chloride 104 (98-107) mmol/L Carbon Dioxide 24 (22-30) mmol/L BUN 18 (9-20) mg/dL Creatinine 0.76 (0.66-1.25) mg/dL Glucose 116 H (74-99) mg/dL Calcium 9.6 (8.4-10.2) mg/dL Adrenal panel 03/20/25 Range/Units 05:06 Sodium 139 (137-145) mmol/L Potassium 4.6 (3.5-5.1) mmol/L Chloride 104 (98-107) mmol/L Carbon Dioxide 24 (22-30) mmol/L BUN 18 (9-20) mg/dL Creatinine 0.76 (0.66-1.25) mg/dL Glucose 116 H (74-99) mg/dL Calcium 9.6 (8.4-10.2) mg/dL Assessment and Plan Assessment: 1. Left great toe amputation site infection 2. Nonhealing left great toe amputation surgical wound done at outside facility 3. Diabetes mellitus 4. Peripheral arterial disease with revascularization 5. Former smoker Plan: 1. Continue antibiotics per recommendations from infectious disease 2. Continue local wound care per recommendations from infectious disease 3. Will plan for surgical debridement with skin substitute and deep tissue cultures on 03/24/2025 4. Rest of medical management per primary medical team Thank you for this consultation, we will continue to follow. The impression and plan of care has been dictated as directed. I performed a history and examination of this patient, discussed the same with the dictator. I agree with the dictator's note ,documented as a scribe. Any additional findings or plans will be noted.
[2025-03-20 12:19] LABS: Glucose,Whole Blood 69 mg/dL (70-110)
--- NOTE | 2025-03-20 15:56 | P.PN ---
Subjective Progress Note Date: 03/20/25 Principal diagnosis: Reason for follow-up is left big toe amputation site nonhealing wound/infection Patient is a 69-year-old male with a past medical history significant for diabetes mellitus hypertension hyperlipidemia [place] patient did have a history of left big toe amputation with subsequent nonhealing of the wound elevated hospital concerning for left big toe surgical site infection. On today's evaluation that is 03/20/2025,the patient remains to be afebrile, pat ient is on room air not requiring supplemental oxygen and denies any shortness of breath no chest pain or cough.Patient denies having any nausea or vomiting, no abdominal pain and no diarrhea denies any worsening pain to the left great toe potation site. Patient white count is 4.65, creatinine 0.76 Vanco trough is low at 11.2 culture growing presented Staph aureus Objective - Vital Signs Vital signs: Vital Signs Temp 98.2 F 03/20/25 12:20 Pulse 48 L 03/20/25 12:20 Resp 15 03/20/25 12:20 BP 104/62 03/20/25 12:20 Pulse Ox 96 03/20/25 12:20 FiO2 Intake & Output 03/19/25 03/20/25 03/20/25 18:59 06:59 18:59 Intake Total 540 240 Output Total 575 1300 Balance -35 -1300 240 Weight 70.76 kg Intake: Oral 540 240 Output: Urine 575 1300 Other: Voiding Method Urinal Urinal Urinal # Voids 2 # Bowel Movements 1 1 - Exam GENERAL DESCRIPTION: An elderly male lying in bed in no distress RESPIRATORY SYSTEM: Unlabored breathing , decreased breath sounds at bases HEART: S1 S2 regular rate and rhythm , ABDOMEN: Soft , no tenderness EXTREMITIES: Left extremity shallow wound with slough tissue no drainage - Labs CBC & Chem 7: 03/20/25 05:06 03/20/25 05:06 Labs: Abnormal Lab Results - Last 24 Hours (Table) 03/19/25 03/20/25 03/20/25 Range/Units 20:14 05:06 05:06 RBC 3.56 L (4.40-5.60) X 10*6/uL Hgb 11.0 L (13.0-17.0) g/dL Hct 35.2 L (39.6-50.0) % MCV 98.9 H (80.0-97.0) FL MCHC 31.3 L (32.0-37.0) g/dL RDW 15.5 H (11.5-14.5) % Lymphocytes # 0.66 L (0.90-5.00) X 10*3/uL Glucose 116 H (74-99) mg/dL POC Glucose (mg/dL) 182 H (70-110) mg/dL 03/20/25 03/20/25 Range/Units 07:03 12:18 RBC (4.40-5.60) X 10*6/uL Hgb (13.0-17.0) g/dL Hct (39.6-50.0) % MCV (80.0-97.0) FL MCHC (32.0-37.0) g/dL RDW (11.5-14.5) % Lymphocytes # (0.90-5.00) X 10*3/uL Glucose (74-99) mg/dL POC Glucose (mg/dL) 123 H 69 L (70-110) mg/dL Microbiology - Last 24 Hours (Table) 03/18/25 18:00 Gram Stain - Preliminary Foot - Left Wound Culture - Preliminary Presumptive Staph aureus 03/18/25 17:33 Blood Culture - Preliminary Blood Assessment and Plan (1) Left great toe amputee Current Visit: Yes Status: Acute Code(s): Z89.412 - ACQUIRED ABSENCE OF LEFT GREAT TOE SNOMED Code(s): 018332361 (2) Diabetic ulcer of left foot Current Visit: Yes Status: Acute Code(s): E11.621 - TYPE 2 DIABETES MELLITUS WITH FOOT ULCER; L97.529 - NON-PRESSURE CHRONIC ULCER OTH PRT LEFT FOOT W UNSP SEVERITY SNOMED Code(s): 069934580 (3) Diabetic infection of left foot Current Visit: Yes Status: Acute Code(s): E11.628 - TYPE 2 DIABETES MELLITUS WITH OTHER SKIN COMPLICATIONS; L08.9 - LOCAL INFECTION OF THE SKIN AND SUBCUTANEOUS TISSUE, UNSP SNOMED Code(s): 844067255 (4) Cellulitis of left foot Current Visit: Yes Status: Acute Code(s): L03.116 - CELLULITIS OF LEFT LOWER LIMB SNOMED Code(s): 02883099584261890 Plan: 1patient with a chronic nonhealing wound to the left big toe amputation site with initial evaluation in about a month ago now admitted to hospital concerning for worsening wound nonhealing concern for secondary wound infection likely from gram-positive skin bob however gram-negative infection not entirely excluded. 2patient has been evaluated by vascular surgery and planning for debridement and deep culture on Monday because of the holiday. 3patient to continuelocal wound care with the Santyl followed by moist dressing change daily. 4local culture growing Staph aureus sensitivities pending covered with vancomycin and Unasyn while waiting for the culture to finalize Dictation was produced using [email or web address] dictation software. please excuse any grammatical, word or spelling errors. Time with Patient: Less than 30
[2025-03-20 17:25] LABS: Glucose,Whole Blood 92 mg/dL (70-110)
[2025-03-20 20:39] LABS: Glucose,Whole Blood 188 mg/dL (70-110)
--- NOTE | 2025-03-21 02:48 | PN ---
PROGRESS NOTE DATE OF SERVICE: 03/20/2025 SUBJECTIVE: This 69-year-old gentleman admitted with significant infection of the foot after big toe amputations, being closely monitored. No chest pain. No palpitation. PHYSICAL EXAMINATION: VITAL SIGNS: Pulse 87, blood pressure 130/70, respirations 15. CHEST: Clear to auscultation. CARDIOVASCULAR: S1 and S2. ABDOMEN: Soft. EXTREMITIES: Left foot has significant infection present. LABORATORY DATA: Reviewed. ASSESSMENT: 1. Left foot infection with cellulitis, nonhealing. Failure of outpatient treatment. Rule out osteomyelitis. 2. History of recent left great toe amputation. 3. Anemia. 4. Leukopenia. 5. Diabetes mellitus, type 2. 6. Hypertension. 7. History of peripheral vascular disease. 8. Hyperlipidemia. 9. History of myocardial infarction. 10.History of coronary artery disease, stent. RECOMMENDATIONS AND DISCUSSION: Recommend to continue current management and continue with empiric antibiotics. Follow the cultures since the staph aureus had grown from the culture. Closely follow with Infectious Disease and Vascular Surgery. Further recommendations, we will monitor blood sugars closely. MMODL / IJN: [id number] /
[2025-03-21 07:33] LABS: Glucose,Whole Blood 97 mg/dL (70-110)
[2025-03-21 09:33] LABS: Anion Gap 9.80 mmol/L (4.00-12.00); BUN/Creat Ratio 20.57 Ratio (12.00-20.00); Blood Urea Nitrogen 14.4 mg/dL (9.0-27.0); Calcium 8.6 mg/dL (8.7-10.3); Carbon Dioxide 24.2 mmol/L (21.6-31.8); Chloride 104 mmol/L (96-109); Glucose 92 mg/dL (70-110); Potassium 4.4 mmol/L (3.5-5.5); Sodium 138 mmol/L (135-145)
[2025-03-21 09:38] LABS: Basophils # (A) 0.03 X 10*3/uL (0.00-0.10); Basophils % (A) 0.7 %; Eosinophils # (A) 0.18 X 10*3/uL (0.04-0.35); Eosinophils % (A) 3.9 %; HCT 33.8 % (39.6-50.0); HGB 10.4 g/dL (13.0-17.0); Immature Grans, Automated 0.20 %; Lymphocytes # (A) 0.86 X 10*3/uL (0.90-5.00); Lymphocytes % (A) 18.7 %; MCH 30.4 pg (27.0-32.0); MCHC 30.8 g/dL (32.0-37.0); MCV 98.8 FL (80.0-97.0); Monocytes # (A) 0.47 X 10*3/uL (0.20-1.00); Monocytes % (A) 10.2 %; NRBC Per 100 WBC 0 X 10*3/uL (0.00-0.01); Neutrophils # (A) 3.04 X 10*3/uL (1.80-7.70); Neutrophils % (A) 66.3 %; Platelet Count 185 X 10*3/uL (140-440); RBC 3.42 X 10*6/uL (4.40-5.60); RDW 15.5 % (11.5-14.5); WBC 4.59 X 10*3/uL (4.50-10.00)
[2025-03-21 12:49] LABS: Glucose,Whole Blood 71 mg/dL (70-110)
--- NOTE | 2025-03-21 14:57 | PN ---
PROGRESS NOTE DATE OF SERVICE: 03/21/2025 SUBJECTIVE: This is a 69-year-old gentleman who was admitted with left foot infection and cellulitis, improving significantly. He is being closely monitored. The patient is slated for surgery by Vascular Surgery. No chest pain. No palpitation. OBJECTIVE: VITAL SIGNS: On Exam; pulse is 75, blood pressure 130/60, respirations 17. CHEST: Clear to auscultation. ABDOMEN: Soft. LEGS: Infection and cellulitis present. LABORATORY DATA: Reviewed. ASSESSMENT: 1. Left foot infection with cellulitis, nonhealing. Failure of outpatient treatment. Rule out osteomyelitis. 2. History of recent left great toe amputation. 3. Anemia. 4. Leukopenia. 5. Diabetes mellitus type 2. 6. Hypertension. 7. History of peripheral vascular disease. 8. Hyperlipidemia. 9. History of myocardial infarction. 10.History of coronary artery disease, stent. RECOMMENDATIONS: Recommend to continue current management and continue symptomatic treatment. Otherwise, I would recommend repeat labs. Antibiotics. Closely follow with Vascular Surgery and Infectious Disease. Guarded prognosis. Further recommendations to follow. MMODL / IJN: [id number] /
--- NOTE | 2025-03-21 15:44 | P.PN ---
Subjective Progress Note Date: 03/21/25 Principal diagnosis: Reason for follow-up is left big toe amputation site nonhealing wound/infection Patient is a 69-year-old male with a past medical history significant for diabetes mellitus hypertension hyperlipidemia [place] patient did have a history of left big toe amputation with subsequent nonhealing of the wound elevated hospital concerning for left big toe surgical site infection. On today's evaluation that is 03/21/2025, the patient continues to be afebrile, the patient is on room air and breathing comfortably, the Pt denies having any chest pain or cough, the patient denies having any abdominal pain no vomiting or any diarrhea pain to the left foot is currently controlled. Patient white count is 4.510, creatinine 0.7 culture with MSSA anaerobe cultures are pending Objective - Vital Signs Vital signs: Vital Signs Temp 97.9 F 03/21/25 08:00 Pulse 75 03/21/25 08:00 Resp 17 03/21/25 08:00 BP 133/64 03/21/25 08:00 Pulse Ox 97 03/21/25 08:00 FiO2 Intake & Output 03/20/25 03/21/25 03/21/25 18:59 06:59 18:59 Intake Total 750 450 Output Total 700 575 500 Balance 50 -125 -500 Intake: Intake, IV Titration 450 Amount Ampicillin-Sulbactam 3 gm 200 In Sodium Chloride 0.9% 100 ml @ 200 mls/hr IVPB Q6HR [facility] Rx#:[id number] Vancomycin 1,250 mg In 250 Sodium Chloride 0.9% 250 ml @ 125 mls/hr IVPB Q12H [facility] Rx#:[id number] Oral 750 Output: Urine 700 575 500 Other: Voiding Method Urinal Urinal # Voids 1 - Exam GENERAL DESCRIPTION: An elderly male lying in bed in no distress RESPIRATORY SYSTEM: Unlabored breathing , decreased breath sounds at bases HEART: S1 S2 regular rate and rhythm , ABDOMEN: Soft , no tenderness EXTREMITIES: Left extremity shallow wound with slough tissue no drainage - Labs CBC & Chem 7: 03/21/25 06:50 03/21/25 06:50 Labs: Abnormal Lab Results - Last 24 Hours (Table) 03/20/25 03/20/25 03/21/25 Range/Units 12:18 20:37 06:50 RBC 3.42 L (4.40-5.60) X 10*6/uL Hgb 10.4 L (13.0-17.0) g/dL Hct 33.8 L (39.6-50.0) % MCV 98.8 H (80.0-97.0) FL MCHC 30.8 L (32.0-37.0) g/dL RDW 15.5 H (11.5-14.5) % Lymphocytes # 0.86 L (0.90-5.00) X 10*3/uL BUN/Creatinine Ratio (12.00-20.00) Ratio POC Glucose (mg/dL) 69 L 188 H (70-110) mg/dL Calcium (8.7-10.3) mg/dL 03/21/25 Range/Units 06:50 RBC (4.40-5.60) X 10*6/uL Hgb (13.0-17.0) g/dL Hct (39.6-50.0) % MCV (80.0-97.0) FL MCHC (32.0-37.0) g/dL RDW (11.5-14.5) % Lymphocytes # (0.90-5.00) X 10*3/uL BUN/Creatinine Ratio 20.57 H (12.00-20.00) Ratio POC Glucose (mg/dL) (70-110) mg/dL Calcium 8.6 L (8.7-10.3) mg/dL Microbiology - Last 24 Hours (Table) 03/18/25 18:00 Gram Stain - Final Foot - Left Wound Culture - Final Staphylococcus aureus 03/18/25 17:33 Blood Culture - Preliminary Blood Assessment and Plan (1) Left great toe amputee Current Visit: Yes Status: Acute Code(s): Z89.412 - ACQUIRED ABSENCE OF LEFT GREAT TOE SNOMED Code(s): 557142621 (2) Diabetic ulcer of left foot Current Visit: Yes Status: Acute Code(s): E11.621 - TYPE 2 DIABETES MELLITUS WITH FOOT ULCER; L97.529 - NON-PRESSURE CHRONIC ULCER OTH PRT LEFT FOOT W UNSP SEVERITY SNOMED Code(s): 309909515 (3) Diabetic infection of left foot Current Visit: Yes Status: Acute Code(s): E11.628 - TYPE 2 DIABETES MELLITUS WITH OTHER SKIN COMPLICATIONS; L08.9 - LOCAL INFECTION OF THE SKIN AND SUBCUTANEOUS TISSUE, UNSP SNOMED Code(s): 402566114 (4) Cellulitis of left foot Current Visit: Yes Status: Acute Code(s): L03.116 - CELLULITIS OF LEFT LOWER LIMB SNOMED Code(s): 45609939703464701 Plan: 1patient with a chronic nonhealing wound to the left big toe amputation site with initial evaluation in about a month ago now admitted to hospital concerning for worsening wound nonhealing concern for secondary wound infection likely from gram-positive skin bob however gram-negative infection not entirely excluded. 2patient has been evaluated by vascular surgery and planning for debridement and deep culture on Monday because of the holiday. 3patient to continuelocal wound care with the Santyl followed by moist dressing change daily. 4local culture growing MSSA we will keep the patient on Unasyn however discontinue vancomycin Dictation was produced using [employer] dictation software. please excuse any grammatical, word or spelling errors. Time with Patient: Less than 30
[2025-03-21 17:31] LABS: Glucose,Whole Blood 77 mg/dL (70-110)
[2025-03-21 20:09] LABS: Glucose,Whole Blood 178 mg/dL (70-110)
[2025-03-22 06:51] LABS: Glucose,Whole Blood 99 mg/dL (70-110)
[2025-03-22 09:26] LABS: Basophils # (A) 0.04 X 10*3/uL (0.00-0.10); Basophils % (A) 0.9 %; Eosinophils # (A) 0.26 X 10*3/uL (0.04-0.35); Eosinophils % (A) 5.7 %; HCT 32.1 % (39.6-50.0); HGB 10.0 g/dL (13.0-17.0); Immature Grans, Automated 0.20 %; Lymphocytes # (A) 0.88 X 10*3/uL (0.90-5.00); Lymphocytes % (A) 19.2 %; MCH 30.8 pg (27.0-32.0); MCHC 31.2 g/dL (32.0-37.0); MCV 98.8 FL (80.0-97.0); Monocytes # (A) 0.56 X 10*3/uL (0.20-1.00); Monocytes % (A) 12.2 %; NRBC Per 100 WBC 0 X 10*3/uL (0.00-0.01); Neutrophils # (A) 2.84 X 10*3/uL (1.80-7.70); Neutrophils % (A) 61.8 %; Platelet Count 184 X 10*3/uL (140-440); RBC 3.25 X 10*6/uL (4.40-5.60); RDW 15.6 % (11.5-14.5); WBC 4.59 X 10*3/uL (4.50-10.00)
[2025-03-22 10:23] LABS: Anion Gap 9.90 mmol/L (4.00-12.00); BUN/Creat Ratio 26.86 Ratio (12.00-20.00); Blood Urea Nitrogen 18.8 mg/dL (9.0-27.0); Calcium 8.5 mg/dL (8.7-10.3); Carbon Dioxide 24.1 mmol/L (21.6-31.8); Chloride 105 mmol/L (96-109); Glucose 97 mg/dL (70-110); Potassium 4.4 mmol/L (3.5-5.5); Sodium 139 mmol/L (135-145)
[2025-03-22 12:14] LABS: Glucose,Whole Blood 51 mg/dL (70-110)
[2025-03-22 12:40] LABS: Glucose,Whole Blood 89 mg/dL (70-110)
--- NOTE | 2025-03-22 15:15 | P.PN ---
Subjective Progress Note Date: 03/22/25 Principal diagnosis: Reason for follow-up is left big toe amputation site nonhealing wound/infection Patient is a 69-year-old male with a past medical history significant for diabetes mellitus hypertension hyperlipidemia [place] patient did have a history of left big toe amputation with subsequent nonhealing of the wound elevated hospital concerning for left big toe surgical site infection. On today's evaluation that is 03/22/2024, patient did have a temperature of 98 F this morning and denies having any chills, patient is on room air and breathing comfortably no chest pain or cough, the patient did not have any nausea vomiting abdominal pain or any diarrhea pain to the left foot is currently controlled. Patient white count is 4.59, creatinine 0.7 culture with the Prevotella and MSSA Objective - Vital Signs Vital signs: Vital Signs Temp 97.6 F 03/22/25 12:14 Pulse 62 03/22/25 12:14 Resp 18 03/22/25 12:14 BP 102/64 03/22/25 12:14 Pulse Ox 96 03/22/25 12:14 FiO2 Intake & Output 03/21/25 03/22/25 03/22/25 18:59 06:59 18:59 Intake Total 480 660 Output Total 1450 725 450 Balance -970 -725 210 Intake: Oral 480 660 Output: Urine 1450 725 450 Other: Voiding Method Urinal Urinal # Voids 1 - Exam GENERAL DESCRIPTION: An elderly male lying in bed in no distress RESPIRATORY SYSTEM: Unlabored breathing , decreased breath sounds at bases HEART: S1 S2 regular rate and rhythm , ABDOMEN: Soft , no tenderness EXTREMITIES: Left extremity shallow wound with slough tissue no drainage - Labs CBC & Chem 7: 03/22/25 06:32 03/22/25 06:32 Labs: Abnormal Lab Results - Last 24 Hours (Table) 03/21/25 03/22/25 03/22/25 Range/Units 20:08 06:32 06:32 RBC 3.25 L (4.40-5.60) X 10*6/uL Hgb 10.0 L (13.0-17.0) g/dL Hct 32.1 L (39.6-50.0) % MCV 98.8 H (80.0-97.0) FL MCHC 31.2 L (32.0-37.0) g/dL RDW 15.6 H (11.5-14.5) % Lymphocytes # 0.88 L (0.90-5.00) X 10*3/uL BUN/Creatinine Ratio 26.86 H (12.00-20.00) Ratio POC Glucose (mg/dL) 178 H (70-110) mg/dL Calcium 8.5 L (8.7-10.3) mg/dL 03/22/25 Range/Units 12:09 RBC (4.40-5.60) X 10*6/uL Hgb (13.0-17.0) g/dL Hct (39.6-50.0) % MCV (80.0-97.0) FL MCHC (32.0-37.0) g/dL RDW (11.5-14.5) % Lymphocytes # (0.90-5.00) X 10*3/uL BUN/Creatinine Ratio (12.00-20.00) Ratio POC Glucose (mg/dL) 51 L (70-110) mg/dL Calcium (8.7-10.3) mg/dL Microbiology - Last 24 Hours (Table) 03/18/25 18:00 Anaerobic Culture - Preliminary Foot - Left Prevotella bivia Prevotella disiens Anaerococcus vaginalis 03/18/25 17:33 Blood Culture - Preliminary Blood Assessment and Plan (1) Left great toe amputee Current Visit: Yes Status: Acute Code(s): Z89.412 - ACQUIRED ABSENCE OF LEFT GREAT TOE SNOMED Code(s): 229405331 (2) Diabetic ulcer of left foot Current Visit: Yes Status: Acute Code(s): E11.621 - TYPE 2 DIABETES MELLITUS WITH FOOT ULCER; L97.529 - NON-PRESSURE CHRONIC ULCER OTH PRT LEFT FOOT W UNSP SEVERITY SNOMED Code(s): 592407540 (3) Diabetic infection of left foot Current Visit: Yes Status: Acute Code(s): E11.628 - TYPE 2 DIABETES MELLITUS WITH OTHER SKIN COMPLICATIONS; L08.9 - LOCAL INFECTION OF THE SKIN AND SUBCUTANEOUS TISSUE, UNSP SNOMED Code(s): 535826248 (4) Cellulitis of left foot Current Visit: Yes Status: Acute Code(s): L03.116 - CELLULITIS OF LEFT LOWER LIMB SNOMED Code(s): 55303190706761917 Plan: 1patient with a chronic nonhealing wound to the left big toe amputation site with initial evaluation in about a month ago now admitted to hospital concerning for worsening wound nonhealing concern for secondary wound infection likely from gram-positive skin bob however gram-negative infection not entirely excluded. 2patient has been evaluated by vascular surgery and planning for debridement and deep culture on Monday because of the holiday. 3patient to continuelocal wound care with the Santyl followed by moist dressing change daily. 4local culture growing MSSA as well as anaerobes 5patient is currently being treated with Unasyn and monitor clinical course closely Dictation was produced using [employer] dictation software. please excuse any grammatical, word or spelling errors. Time with Patient: Less than 30
[2025-03-22 17:00] LABS: Glucose,Whole Blood 70 mg/dL (70-110)
[2025-03-22 20:28] LABS: Glucose,Whole Blood 195 mg/dL (70-110)
--- NOTE | 2025-03-22 22:52 | P.PN ---
Subjective Progress Note Date: 03/22/25 Patient evaluated in follow up on the medical floor. He continues on IV unasyn with left foot cellulitis at the recent amputation site. He is on IV unasyn. Pending bone scan and surgical debridement both of which are scheduled for Monday. He is report pain about 7/10 to the left foot today. Otherwise no acute complaints. Wound culture showing staphylococcus aureus. Review of Systems Constitutional: Denied any fatigue denied any fever. Cardio vascular: denied any chest pain, palpitations Gastrointestinal: denied any nausea, vomiting, diarrhea Pulmonary: Denied any shortness of breath cough Neurologic denied any new focal deficits All inpatient medications were reviewed and appropriate changes in these medications as dictated in the interval history and assessment and plan. PHYSICAL EXAMINATION: GENERAL: The patient is alert and oriented x3, not in any acute distress. Well developed, well nourished. HEENT: Pupils are round and equally reacting to light. EOMI. No scleral icterus. No conjunctival pallor. Normocephalic, atraumatic. No pharyngeal erythema. No thyromegaly. CARDIOVASCULAR: S1 and S2 present. No murmurs, rubs, or gallops. PULMONARY: Chest is clear to auscultation, no wheezing or crackles. ABDOMEN: Soft, nontender, nondistended, normoactive bowel sounds. No palpable o rganomegaly. MUSCULOSKELETAL: No joint swelling or deformity. EXTREMITIES: No cyanosis, clubbing, or pedal edema. NEUROLOGICAL: Gross neurological examination did not reveal any focal deficits. SKIN: No rashes. Assessment Left great toe amputation site infection and cellulitis Nonhealing left great toe amputation surgical site Diabetes Mellitus type 2 Hx hypertension currently low/normal Hyperlipidemia Hx of coronary artery disease with stenting Peripheral arterial disease with revascularization from outside facility Former Smoker GI prophylaxis Plan Nuclear Medicine bone scan planned for Saturday 03/24 Surgical debridement and deep tissue cultures scheduled for Saturday 03/24 ID following Vascular surgery following Continue IV unasyn Discontinue lisinopril as blood pressure running on the lower side with high 90s to low 100s systolic. The impression and plan of care has been dictated by Brooklynn Hayes Nurse Practitioner as directed. Dr. Titus MD I have performed a history and physical examination and medical decision making of this patient, discussed the same with the dictator, and agree with the dictators assessment and plan as written, documented as a scribe. Based on total visit time, I have performed more than 50% of this visit. Objective - Vital Signs Vital signs: Vital Signs Temp 97.6 F 03/22/25 07:16 Pulse 83 03/22/25 07:16 Resp 16 03/22/25 07:16 BP 104/68 03/22/25 07:16 Pulse Ox 97 03/22/25 07:16 FiO2 Intake & Output 03/21/25 03/22/25 03/22/25 18:59 06:59 18:59 Intake Total 480 420 Output Total 1450 725 200 Balance -970 -725 220 Intake: Oral 480 420 Output: Urine 1450 725 200 Other: Voiding Method Urinal # Voids 1 - Labs CBC & Chem 7: 03/22/25 06:32 03/22/25 06:32 Labs: Abnormal Lab Results - Last 24 Hours (Table) 03/21/25 03/22/25 Range/Units 20:08 06:32 RBC 3.25 L (4.40-5.60) X 10*6/uL Hgb 10.0 L (13.0-17.0) g/dL Hct 32.1 L (39.6-50.0) % MCV 98.8 H (80.0-97.0) FL MCHC 31.2 L (32.0-37.0) g/dL RDW 15.6 H (11.5-14.5) % Lymphocytes # 0.88 L (0.90-5.00) X 10*3/uL POC Glucose (mg/dL) 178 H (70-110) mg/dL Microbiology - Last 24 Hours (Table) 03/18/25 17:33 Blood Culture - Preliminary Blood 03/18/25 18:00 Anaerobic Culture - Preliminary Foot - Left 03/18/25 18:00 Gram Stain - Final Foot - Left Wound Culture - Final Staphylococcus aureus
[2025-03-23] MEDS ORDERED: VANCOMYCIN TROUGH DUE 1 EACH MISC MISCELLANE ONE (05:00)
[2025-03-23 07:10] LABS: Glucose,Whole Blood 88 mg/dL (70-110)
[2025-03-23 07:51] LABS: Basophils # (A) 0.03 10*3/uL (0.00-0.10); Basophils % (A) 0.7 %; Eosinophils # (A) 0.22 10*3/uL (0.04-0.35); Eosinophils % (A) 5.1 %; HCT 32.4 % (39.6-50.0); HGB 10.2 g/dL (13.0-17.0); Lymphocytes # (A) 0.87 10*3/uL (0.90-5.00); Lymphocytes % (A) 20.0 %; MCH 31.1 pg (27.0-32.0); MCHC 31.5 g/dL (32.0-37.0); MCV 98.8 fL (80.0-97.0); Monocytes # (A) 0.51 10*3/uL (0.20-1.00); Monocytes % (A) 11.7 %; Neutrophils # (A) 2.71 10*3/uL (1.80-7.70); Neutrophils % (A) 62.3 %; Platelet Count 172 10*3/uL (140-440); RBC 3.28 10*6/uL (4.40-5.60); RDW 15.4 % (11.5-14.5); WBC 4.35 10*3/uL (4.50-10.00)
[2025-03-23 08:11] LABS: African American GFR (CKD) >90 (>60 ml/min/1.73 sqM); Anion Gap 7 mmol/L; Blood Urea Nitrogen 19 mg/dL (9-20); Calcium 9.3 mg/dL (8.4-10.2); Carbon Dioxide 27 mmol/L (22-30); Chloride 105 mmol/L (98-107); Glucose 81 mg/dL (74-99); Non-African American GFR(CKD) >90 (>60 ml/min/1.73 sqM); Potassium 4.3 mmol/L (3.5-5.1); Sodium 139 mmol/L (137-145)
[2025-03-23 12:22] LABS: Glucose,Whole Blood 102 mg/dL (70-110)
--- NOTE | 2025-03-23 15:37 | P.PN ---
Subjective Progress Note Date: 03/23/25 Patient evaluated in follow up on the medical floor. He continues on IV unasyn with left foot cellulitis at the recent amputation site. He is on IV unasyn. Pending bone scan and surgical debridement both of which are scheduled for Monday. He is report pain about 7/10 to the left foot today. Otherwise no acute complaints. Wound culture showing staphylococcus aureus. 03/23/2025 Patient eval today in follow-up of medical floor. No acute complaints overnight. He remains on IV Unasyn. He is scheduled for surgical debridement tomorrow. Wound cultures are showing Staphylococcus aureus as well as positive anerobic culture with prevotella bivia, prevotella disiens, anaerococcus vaginalis. Review of Systems Constitutional: Denied any fatigue denied any fever. Cardio vascular: denied any chest pain, palpitations Gastrointestinal: denied any nausea, vomiting, diarrhea Pulmonary: Denied any shortness of breath cough Neurologic denied any new focal deficits All inpatient medications were reviewed and appropriate changes in these medications as dictated in the interval history and assessment and plan. PHYSICAL EXAMINATION: GENERAL: The patient is alert and oriented x3, not in any acute distress. Well developed, well nourished. HEENT: Pupils are round and equally reacting to light. EOMI. No scleral icterus. No conjunctival pallor. Normocephalic, atraumatic. No pharyngeal erythema. No t hyromegaly. CARDIOVASCULAR: S1 and S2 present. No murmurs, rubs, or gallops. PULMONARY: Chest is clear to auscultation, no wheezing or crackles. ABDOMEN: Soft, nontender, nondistended, normoactive bowel sounds. No palpable organomegaly. MUSCULOSKELETAL: No joint swelling or deformity. EXTREMITIES: No cyanosis, clubbing, or pedal edema. NEUROLOGICAL: Gross neurological examination did not reveal any focal deficits. SKIN: No rashes. Assessment Left great toe amputation site infection and cellulitis Nonhealing left great toe amputation surgical site Diabetes Mellitus type 2 Hx hypertension currently low/normal Hyperlipidemia Hx of coronary artery disease with stenting Peripheral arterial disease with revascularization from outside facility Former Smoker GI prophylaxis Plan Nuclear Medicine bone scan planned for Saturday 03/24 Surgical debridement and deep tissue cultures scheduled for Saturday 03/24 ID following Vascular surgery following Continue IV unasyn Discontinue lisinopril as blood pressure running on the lower side with high 90s to low 100s systolic. The impression and plan of care has been dictated by Brooklynn Hayes, Nurse Practitioner as directed. Dr. Titus MD I have performed a history and physical examination and medical decision making of this patient, discussed the same with the dictator, and agree with the dictators assessment and plan as written, documented as a scribe. Based on total visit time, I have performed more than 50% of this visit. Objective - Vital Signs Vital signs: Vital Signs Temp 97.9 F 03/23/25 06:25 Pulse 84 03/23/25 08:00 Resp 17 03/23/25 08:00 BP 118/58 03/23/25 06:25 Pulse Ox 96 03/23/25 06:25 FiO2 Intake & Output 03/22/25 03/23/25 03/23/25 18:59 06:59 18:59 Intake Total 1500 200 Output Total 950 1050 Balance 550 -850 Intake: Intake, IV Titration 200 Amount Ampicillin-Sulbactam 3 gm 200 In Sodium Chloride 0.9% 100 ml @ 200 mls/hr IVPB Q6HR [facility] Rx#:[id number] Oral 1500 Output: Urine 950 1050 Other: Voiding Method Urinal Urinal Urinal - Labs CBC & Chem 7: 03/23/25 07:20 03/23/25 07:20 Labs: Abnormal Lab Results - Last 24 Hours (Table) 03/22/25 03/22/25 03/22/25 Range/Units 06:32 12:09 20:26 WBC (4.50-10.00) 10*3/uL RBC (4.40-5.60) 10*6/uL Hgb (13.0-17.0) g/dL Hct (39.6-50.0) % MCV (80.0-97.0) fL MCHC (32.0-37.0) g/dL RDW (11.5-14.5) % MPV (9.5-12.2) fL Lymphocytes # (0.90-5.00) 10*3/uL BUN/Creatinine Ratio 26.86 H (12.00-20.00) Ratio POC Glucose (mg/dL) 51 L 195 H (70-110) mg/dL Calcium 8.5 L (8.7-10.3) mg/dL 03/23/25 Range/Units 07:20 WBC 4.35 L (4.50-10.00) 10*3/uL RBC 3.28 L (4.40-5.60) 10*6/uL Hgb 10.2 L (13.0-17.0) g/dL Hct 32.4 L (39.6-50.0) % MCV 98.8 H (80.0-97.0) fL MCHC 31.5 L (32.0-37.0) g/dL RDW 15.4 H (11.5-14.5) % MPV 9.3 L (9.5-12.2) fL Lymphocytes # 0.87 L (0.90-5.00) 10*3/uL BUN/Creatinine Ratio (12.00-20.00) Ratio POC Glucose (mg/dL) (70-110) mg/dL Calcium (8.7-10.3) mg/dL Microbiology - Last 24 Hours (Table) 03/18/25 18:00 Anaerobic Culture - Preliminary Foot - Left Prevotella bivia Prevotella disiens Anaerococcus vaginalis Assessment and Plan Time with Patient: Less than 30
--- NOTE | 2025-03-23 16:35 | P.PN ---
Subjective Progress Note Date: 03/23/25 Principal diagnosis: Reason for follow-up is left big toe amputation site nonhealing wound/infection Patient is a 69-year-old male with a past medical history significant for diabetes mellitus hypertension hyperlipidemia NC patient did have a history of left big toe amputation with subsequent nonhealing of the wound elevated hospital concerning for left big toe surgical site infection. On today's evaluation that is 03/23/2025, Patient is afebrile patient is current ly on room air and denies having any shortness of breath, the patient denies any chest pain or cough, the patient denies any nausea vomiting did not have any abdominal pain and no diarrhea denies pain to the left big toe. Patient white count is 4.35, creatinine 0.82 Objective - Vital Signs Vital signs: Vital Signs Temp 97.4 F L 03/23/25 12:59 Pulse 80 03/23/25 12:59 Resp 18 03/23/25 12:59 BP 105/69 03/23/25 12:59 Pulse Ox 97 03/23/25 12:59 FiO2 Intake & Output 03/22/25 03/23/25 03/23/25 18:59 06:59 18:59 Intake Total 1500 200 Output Total 950 1050 600 Balance 550 -850 -600 Intake: Intake, IV Titration 200 Amount Ampicillin-Sulbactam 3 gm 200 In Sodium Chloride 0.9% 100 ml @ 200 mls/hr IVPB Q6HR [facility] Rx#:[id number] Oral 1500 Output: Urine 950 1050 600 Other: Voiding Method Urinal Urinal Urinal - Exam GENERAL DESCRIPTION: An elderly male lying in bed in no distress RESPIRATORY SYSTEM: Unlabored breathing , decreased breath sounds at bases HEART: S1 S2 regular rate and rhythm , ABDOMEN: Soft , no tenderness EXTREMITIES: Left extremity shallow wound with slough tissue no drainage - Labs CBC & Chem 7: 03/23/25 07:20 03/23/25 07:20 Labs: Abnormal Lab Results - Last 24 Hours (Table) 03/22/25 03/23/25 Range/Units 20:26 07:20 WBC 4.35 L (4.50-10.00) 10*3/uL RBC 3.28 L (4.40-5.60) 10*6/uL Hgb 10.2 L (13.0-17.0) g/dL Hct 32.4 L (39.6-50.0) % MCV 98.8 H (80.0-97.0) fL MCHC 31.5 L (32.0-37.0) g/dL RDW 15.4 H (11.5-14.5) % MPV 9.3 L (9.5-12.2) fL Lymphocytes # 0.87 L (0.90-5.00) 10*3/uL POC Glucose (mg/dL) 195 H (70-110) mg/dL Microbiology - Last 24 Hours (Table) 03/18/25 18:00 Anaerobic Culture - Final Foot - Left Prevotella bivia Prevotella disiens Anaerococcus vaginalis Assessment and Plan (1) Left great toe amputee Current Visit: Yes Status: Acute Code(s): Z89.412 - ACQUIRED ABSENCE OF LEFT GREAT TOE SNOMED Code(s): 272195495 (2) Diabetic ulcer of left foot Current Visit: Yes Status: Acute Code(s): E11.621 - TYPE 2 DIABETES MELLITUS WITH FOOT ULCER; L97.529 - NON-PRESSURE CHRONIC ULCER OTH PRT LEFT FOOT W UNSP SEVERITY SNOMED Code(s): 769705811 (3) Diabetic infection of left foot Current Visit: Yes Status: Acute Code(s): E11.628 - TYPE 2 DIABETES MELLITUS WITH OTHER SKIN COMPLICATIONS; L08.9 - LOCAL INFECTION OF THE SKIN AND SUBCUTANEOUS TISSUE, UNSP SNOMED Code(s): 466039942 (4) Cellulitis of left foot Current Visit: Yes Status: Acute Code(s): L03.116 - CELLULITIS OF LEFT LOWER LIMB SNOMED Code(s): 96029985125798033 Plan: 1patient with a chronic nonhealing wound to the left big toe amputation site with initial evaluation in about a month ago now admitted to hospital concerning for worsening wound nonhealing concern for secondary wound infection likely from gram-positive skin bob however gram-negative infection not entirely excluded. 2patient has been evaluated by vascular surgery and planning for debridement and deep culture on Monday because of the holiday. 3patient to continuelocal wound care with the Santyl followed by moist dressing change daily. 4local culture growing MSSA as well as anaerobes 5patient currently being treated with Unasyn to continue await surgical exploration that will determine the depth of infection and discharge antibiotics Dictation was produced using [employer] dictation software. please excuse any grammatical, word or spelling errors. Time with Patient: Less than 30
[2025-03-23 17:13] LABS: Glucose,Whole Blood 116 mg/dL (70-110)
[2025-03-23 20:13] LABS: Glucose,Whole Blood 199 mg/dL (70-110)
[2025-03-24 07:15] LABS: Glucose,Whole Blood 107 mg/dL (70-110)
[2025-03-24 12:25] LABS: Glucose,Whole Blood 48 mg/dL (70-110)
[2025-03-24] MEDS: DEXTROSE 50% SYRINGE 50 ML IVP PRN ×2 (12:29→14:28)
[2025-03-24 12:44] LABS: Glucose,Whole Blood 98 mg/dL (70-110)
--- NOTE | 2025-03-24 12:54 | NM ---
EXAMINATION TYPE: NM bone 3 phase DATE OF EXAM: 03/24/2025 COMPARISON: Plain film CLINICAL INDICATION: Male, 69 years old with history of left great toe amputation site, infected, poonam lulit; Triple phase bone scintigraphy was performed following the injection of 24.7 mCi Tc 99m MDP. Immedia te images and 3 hours post injection images acquired. FINDINGS: There is uptake within the great toe amputation site on delayed imaging and blood pool which is not a ppreciated on flow. Additional degeneration uptake throughout the left knee and left ankle. IMPRESSION: Mild uptake at the amputation site of the great toe favored represent postsurgical change s as there is no significant uptake in the flow images. There is mild uptake suggestive of cellulitis . Clinical correlation recommended. Consider MRI. [facility], , 03/24/2025 12:52 PM
[2025-03-24] MEDS: IV FLUID CONTINUATION 1,000 ML IV ONE (13:04)
[2025-03-24 13:15] LABS: Glucose,Whole Blood 78 mg/dL (70-110)
[2025-03-24] MEDS: ONDANSETRON 4 MG/2 ML VIAL IVP PRN (13:27)
[2025-03-24] MEDS ORDERED: fentaNYL (PF) 50 MCG/ML 2 ML AMP ONE (13:28)
[2025-03-24] MEDS ORDERED: MIDAZOLAM 2 MG/2 ML VIAL ONE (13:28)
[2025-03-24] MEDS ORDERED: KETAMINE HCL IN 0.9 % NACL 50 MG/5 ML SYRINGE ONE (13:28)
[2025-03-24] MEDS ORDERED: PROPOFOL 10 MG/ML 20 ML VIAL IV ONE (13:28)
[2025-03-24] MEDS ORDERED: GLYCOPYRROLATE 0.2 MG/ML 2 ML VIAL ONE (13:28)
[2025-03-24] MEDS: FAMOTIDINE 20 MG/2 ML VIAL IV STA (13:30)
[2025-03-24] MEDS: DEXAMETHASONE SOD PHOSPHATE 4 MG/ML 1 ML VIAL IVP STA (13:30)
[2025-03-24 14:21] LABS: Glucose,Whole Blood 61 mg/dL (70-110)
[2025-03-24] MEDS: HYDROmorphone 0.5 MG/0.5 ML SYRINGE IVP PRN (14:36)
--- NOTE | 2025-03-24 14:45 | P.OP ---
Date of Procedure: 03/24/25 Preoperative Diagnosis: Left great toe amputation wound Postoperative Diagnosis: Same Procedure(s) Performed: Excisional debridement of left great toe amputation wound with skin substitute placement and deep wound culture Anesthesia: MAC Surgeon: Ismael Hernandez Estimated Blood Loss (ml): 10 Pathology: other (Wound culture) Condition: stable Disposition: PACU Indications for Procedure: 69-year-old gentleman with history of left great toe amputation at a hospital in [place] presented to the [facility] for infection involving this area. There is purulent drainage as well as ischemic changes at the amputation site and patient was scheduled for excisional debridement, deep wound culture and possible skin substitute. Operative Findings: Fibrinous tissue throughout the wound bed measuring 4.5 x 2.5 x 0.3 cm in depth. Depth went down to the subcutaneous tissue but did not involve the bone. There was involvement in the fascia. Description of Procedure: After written and informed consent was obtained for the patient all risk, benefits and complications were described the patient was brought to the operative suite and laid in the supine position. The area of the left foot was prepped and draped in usual sterile fashion after appropriate anesthetic was performed per the anesthesiologist. Timeout was performed normal fashion. Antibiotics have been given on the floor. Utilizing a scalpel and a curette s harp debridement was performed at the previous incision site with removal of dense fibrinous tissue and ischemic tissue. There was some purulence noted which was cultured. The wound did not extend into the bone and did appear to have fascial covering. Once all tissue was removed and good healthy bleeding tissue was encountered a skin substitute PuraPly AM was placed overlying the wound area. This was secured with Steri-Strips and Adaptic, 4 x 4 and Kerlix wrap. Patient tolerated procedure well and was sent to PACU for recovery.
[2025-03-24 15:06] LABS: Glucose,Whole Blood 86 mg/dL (70-110)
[2025-03-24] MEDS: LACTATED RINGERS 1,000 ML IV SCH (15:17)
[2025-03-24 17:20] LABS: Glucose,Whole Blood 80 mg/dL (70-110)
[2025-03-24 19:57] LABS: Glucose,Whole Blood 180 mg/dL (70-110)
--- NOTE | 2025-03-24 22:04 | P.PN ---
Subjective Progress Note Date: 03/24/25 Patient evaluated in follow up on the medical floor. He continues on IV unasyn with left foot cellulitis at the recent amputation site. He is on IV unasyn. Pending bone scan and surgical debridement both of which are scheduled for Monday. He is report pain about 7/10 to the left foot today. Otherwise no acute complaints. Wound culture showing staphylococcus aureus. 03/23/2025 Patient eval today in follow-up of medical floor. No acute complaints overnight. He remains on IV Unasyn. He is scheduled for surgical debridement tomorrow. Wound cultures are showing Staphylococcus aureus as well as positive anerobic culture with prevotella bivia, prevotella disiens, anaerococcus vaginalis. 03/24/2025 Patient is currently n.p.o. today with vascular surgery following and plans on surgical debridement and deep cultures. Patient also scheduled to undergo bone scan with infectious disease following. Initial culture showing MSSA and will be awaiting deep tissue cultures to determine appropriate discharge antibiotics. Patient is also scheduled to undergo a bone scan today which was delayed due to the holiday. Results pending at this time patient is afebrile with no reports of chest pain or shortness of breath. Patient has been tolerating diet with no reported nausea or vomiting. Continue monitoring Accu-Cheks ACHS and will adjust insulins accordingly. Review of Systems Constitutional: Denied any fatigue denied any fever. Cardio vascular: denied any chest pain, palpitations Gastrointestinal: denied any nausea, vomiting, diarrhea Pulmonary: Denied any shortness of breath cough Neurologic denied any new focal deficits All inpatient medications were reviewed and appropriate changes in these medications as dictated in the interval history and assessment and plan. PHYSICAL EXAMINATION: GENERAL: The patient is alert and oriented x3, not in any acute distress. Well developed, well nourished. HEENT: Pupils are round and equally reacting to light. EOMI. No scleral icterus. No conjunctival pallor. Normocephalic, atraumatic. No pharyngeal erythema. No thyromegaly. CARDIOVASCULAR: S1 and S2 present. No murmurs, rubs, or gallops. PULMONARY: Chest is clear to auscultation, no wheezing or crackles. ABDOMEN: Soft, nontender, nondistended, normoactive bowel sounds. No palpable organomegaly. MUSCULOSKELETAL: No joint swelling or deformity. EXTREMITIES: No cyanosis, clubbing, or pedal edema. NEUROLOGICAL: Gross neurological examination did not reveal any focal deficits. SKIN: No rashes. 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 Diabetes Mellitus type 2, uncontrolled with hyperglycemia Hx hypertension currently low/normal Hyperlipidemia Hx of coronary artery disease with stenting Peripheral arterial disease with revascularization from outside facility Former Smoker GI prophylaxis DVT prophylaxis Full code Plan: Nuclear Medicine bone scan planned for Saturday 03/24 which was started today and pending read Surgical debridement and deep tissue cultures scheduled for today 03/24 with vascular surgery and will be awaiting deep tissue cultures to determine tomasz ropriate discharge antibiotics with infectious disease following Continue IV unasyn for now Discontinue lisinopril as blood pressure running on the lower side with high 90s to low 100s systolic. Patient is currently n.p.o. and scheduled for this procedure today and diet will be resumed once cleared by surgery Continue monitoring Accu-Cheks AC and at bedtime and will adjust insulins accordingly Recommend PT/OT therapy evaluation once cleared by vascular surgery Consult to case management/social work to work on discharge planning. Will be awaiting deep tissue cultures from debridement today 03/24/2025 to determine appropriate discharge antibiotics with infectious disease following. Patient re ports he would like to go home on discharge and him and can manage IV antibiotics. The impression and plan of care has been dictated by Riana Araya, Nurse Practitioner as directed. Dr. Titus MD I have performed a history and physical examination and medical decision making of this patient, discussed the same with the dictator, and agree with the dictators assessment and plan as written, documented as a scribe. Based on total visit time, I have performed more than 50% of this visit. Objective - Vital Signs Vital signs: Vital Signs Temp 98.4 F 03/24/25 00:36 Pulse 103 H 03/24/25 00:36 Resp 16 03/24/25 00:36 BP 116/76 03/24/25 00:36 Pulse Ox 96 03/24/25 00:36 FiO2 Intake & Output 03/23/25 03/23/25 03/24/25 06:59 18:59 06:59 Intake Total 200 Output Total 0407 526 4932 Balance -850 -600 -1050 Intake: Intake, IV Titration 200 Amount Ampicillin-Sulbactam 3 gm 200 In Sodium Chloride 0.9% 100 ml @ 200 mls/hr IVPB Q6HR [facility] Rx#:[id number] Output: Urine 5575 169 0985 Other: Voiding Method Urinal Urinal Urinal - Labs CBC & Chem 7: 03/23/25 07:20 03/23/25 07:20 Labs: Abnormal Lab Results - Last 24 Hours (Table) 03/23/25 03/23/25 03/23/25 Range/Units 07:20 17:12 20:11 WBC 4.35 L (4.50-10.00) 10*3/uL RBC 3.28 L (4.40-5.60) 10*6/uL Hgb 10.2 L (13.0-17.0) g/dL Hct 32.4 L (39.6-50.0) % MCV 98.8 H (80.0-97.0) fL MCHC 31.5 L (32.0-37.0) g/dL RDW 15.4 H (11.5-14.5) % MPV 9.3 L (9.5-12.2) fL Lymphocytes # 0.87 L (0.90-5.00) 10*3/uL POC Glucose (mg/dL) 116 H 199 H (70-110) mg/dL Microbiology - Last 24 Hours (Table) 03/18/25 17:33 Blood Culture - Final Blood 03/18/25 18:00 Anaerobic Culture - Final Foot - Left Prevotella bivia Prevotella disiens Anaerococcus vaginalis
[2025-03-25 07:29] LABS: Glucose,Whole Blood 87 mg/dL (70-110)
[2025-03-25 08:32] LABS: Basophils # (A) 0.03 X 10*3/uL (0.00-0.10); Basophils % (A) 0.7 %; Eosinophils # (A) 0.07 X 10*3/uL (0.04-0.35); Eosinophils % (A) 1.7 %; HCT 32.3 % (39.6-50.0); HGB 10.2 g/dL (13.0-17.0); Immature Grans, Automated 0.20 %; Lymphocytes # (A) 0.76 X 10*3/uL (0.90-5.00); Lymphocytes % (A) 18.5 %; MCH 31.1 pg (27.0-32.0); MCHC 31.6 g/dL (32.0-37.0); MCV 98.5 FL (80.0-97.0); Monocytes # (A) 0.49 X 10*3/uL (0.20-1.00); Monocytes % (A) 12.0 %; NRBC Per 100 WBC 0 X 10*3/uL (0.00-0.01); Neutrophils # (A) 2.74 X 10*3/uL (1.80-7.70); Neutrophils % (A) 66.9 %; Platelet Count 200 X 10*3/uL (140-440); RBC 3.28 X 10*6/uL (4.40-5.60); RDW 15.3 % (11.5-14.5); WBC 4.10 X 10*3/uL (4.50-10.00)
[2025-03-25] MEDS: Acetaminophen-Codeine 300-30mg TAB PO PRN (08:32)
[2025-03-25 08:48] LABS: Anion Gap 10.80 mmol/L (4.00-12.00); BUN/Creat Ratio 21.89 Ratio (12.00-20.00); Blood Urea Nitrogen 19.7 mg/dL (9.0-27.0); Calcium 8.8 mg/dL (8.7-10.3); Carbon Dioxide 24.2 mmol/L (21.6-31.8); Chloride 104 mmol/L (96-109); Glucose 121 mg/dL (70-110); Magnesium 2.1 mg/dL (1.5-2.4); Potassium 4.3 mmol/L (3.5-5.5); Sodium 139 mmol/L (135-145)
[2025-03-25 12:18] LABS: Glucose,Whole Blood 69 mg/dL (70-110)
[2025-03-25 12:40] LABS: Glucose,Whole Blood 65 mg/dL (70-110)
[2025-03-25 13:12] LABS: Glucose,Whole Blood 64 mg/dL (70-110)
[2025-03-25 13:16] LABS: Glucose,Whole Blood 89 mg/dL (70-110)
--- NOTE | 2025-03-25 16:33 | P.PN ---
Subjective Progress Note Date: 03/25/25 Principal diagnosis: Left great toe amputation wound Patient seen and examined at bedside. He is doing well and his foot pain is improved. He states that there is minimal drainage. He did have a change today and stated that there was some blood on the dressing Objective - Vital Signs Vital signs: Vital Signs Temp 97.8 F 03/25/25 12:40 Pulse 64 03/25/25 12:40 Resp 19 03/25/25 12:40 BP 107/70 03/25/25 12:40 Pulse Ox 100 03/25/25 12:40 FiO2 Intake & Output 03/24/25 03/25/25 03/25/25 18:59 06:59 18:59 Intake Total 1180 240 Output Total 903 925 Balance 277 -925 240 Weight 70.76 kg Intake: IV 600 Oral 580 240 Output: Urine 900 925 Estimated Blood Loss 3 Other: Voiding Method Urinal Urinal Urinal - Exam Dressings in place at the left great toe wound bed without any strikethrough through the bandages. - Constitutional General appearance: Present: average body habitus, cooperative - Labs CBC & Chem 7: 03/25/25 04:29 03/25/25 04:29 Labs: Abnormal Lab Results - Last 24 Hours (Table) 03/24/25 03/25/25 03/25/25 Range/Units 19:55 04:29 04:29 WBC 4.10 L (4.50-10.00) X 10*3/uL RBC 3.28 L (4.40-5.60) X 10*6/uL Hgb 10.2 L (13.0-17.0) g/dL Hct 32.3 L (39.6-50.0) % MCV 98.5 H (80.0-97.0) FL MCHC 31.6 L (32.0-37.0) g/dL RDW 15.3 H (11.5-14.5) % Lymphocytes # 0.76 L (0.90-5.00) X 10*3/uL BUN/Creatinine Ratio 21.89 H (12.00-20.00) Ratio Glucose 121 H (70-110) mg/dL POC Glucose (mg/dL) 180 H (70-110) mg/dL 03/25/25 03/25/25 03/25/25 Range/Units 12:05 12:37 13:10 WBC (4.50-10.00) X 10*3/uL RBC (4.40-5.60) X 10*6/uL Hgb (13.0-17.0) g/dL Hct (39.6-50.0) % MCV (80.0-97.0) FL MCHC (32.0-37.0) g/dL RDW (11.5-14.5) % Lymphocytes # (0.90-5.00) X 10*3/uL BUN/Creatinine Ratio (12.00-20.00) Ratio Glucose (70-110) mg/dL POC Glucose (mg/dL) 69 L 65 L 64 L (70-110) mg/dL Microbiology - Last 24 Hours (Table) 03/24/25 14:00 Gram Stain - Preliminary Toe - Left First Assessment and Plan Assessment: Left great toe amputation wound Postop day 1 of debridement and deep culture with skin substitute placement Plan: Continue current treatment and antibiotics per infectious disease. Awaiting deep wound cultures. Maintain dressing for skin substitute for 1 week. Patient to follow-up next week in the office if discharged.
--- NOTE | 2025-03-25 17:04 | P.PN ---
Subjective Progress Note Date: 03/24/25 Principal diagnosis: Reason for follow-up is left big toe amputation site nonhealing wound/infection Patient is a 69-year-old male with a past medical history significant for diabetes mellitus hypertension hyperlipidemia [facility] patient did have a history of left big toe amputation with subsequent nonhealing of the wound elevated hospital concerning for left big toe surgical site infection. On today's evaluation that is 03/24/2025, patient has been afebrile, patient is breathing comfortably and is currently on room air, patient denies having any chest pain and cough, patient denies nausea vomiting or diarrhea and no abdominal pain patient denies any worsening pain to the left big toe amputation site. Patient white count is 4.35 creatinine 0.82 Objective - Vital Signs Vital signs: Vital Signs Temp 97.7 F 03/24/25 12:28 Pulse 66 03/24/25 12:28 Resp 20 03/24/25 12:28 BP 114/70 03/24/25 12:28 Pulse Ox 98 03/24/25 12:28 FiO2 Intake & Output 03/23/25 03/24/25 03/24/25 18:59 06:59 18:59 Intake Total 200 Output Total 600 1650 Balance -600 -1450 Intake: Intake, IV Titration 200 Amount Ampicillin-Sulbactam 3 gm 200 In Sodium Chloride 0.9% 100 ml @ 200 mls/hr IVPB Q6HR [facility] Rx#:[id number] Output: Urine 600 1650 Other: Voiding Method Urinal Urinal Urinal - Exam GENERAL DESCRIPTION: An elderly male lying in bed in no distress RESPIRATORY SYSTEM: Unlabored breathing , decreased breath sounds at bases HEART: S1 S2 regular rate and rhythm , ABDOMEN: Soft , no tenderness EXTREMITIES: Left extremity shallow wound with slough tissue no drainage - Labs CBC & Chem 7: 03/25/25 04:29 03/25/25 04:29 Labs: Abnormal Lab Results - Last 24 Hours (Table) 03/23/25 03/23/25 03/24/25 Range/Units 17:12 20:11 12:23 POC Glucose (mg/dL) 116 H 199 H 48 L* (70-110) mg/dL Microbiology - Last 24 Hours (Table) 03/18/25 17:33 Blood Culture - Final Blood 03/18/25 18:00 Anaerobic Culture - Final Foot - Left Prevotella bivia Prevotella disiens Anaerococcus vaginalis Assessment and Plan (1) Left great toe amputee Current Visit: Yes Status: Acute Code(s): Z89.412 - ACQUIRED ABSENCE OF LEFT GREAT TOE SNOMED Code(s): 391230010 (2) Diabetic ulcer of left foot Current Visit: Yes Status: Acute Code(s): E11.621 - TYPE 2 DIABETES MELLITUS WITH FOOT ULCER; L97.529 - NON-PRESSURE CHRONIC ULCER OTH PRT LEFT FOOT W UNSP SEVERITY SNOMED Code(s): 425072782 (3) Diabetic infection of left foot Current Visit: Yes Status: Acute Code(s): E11.628 - TYPE 2 DIABETES MELLITUS WITH OTHER SKIN COMPLICATIONS; L08.9 - LOCAL INFECTION OF THE SKIN AND SUBCUTANEOUS TISSUE, UNSP SNOMED Code(s): 068077945 (4) Cellulitis of left foot Current Visit: Yes Status: Acute Code(s): L03.116 - CELLULITIS OF LEFT LOWER LIMB SNOMED Code(s): 40664490590146284 Plan: 1patient with a chronic nonhealing wound to the left big toe amputation site with initial evaluation in about a month ago now admitted to hospital concerning for worsening wound nonhealing concern for secondary wound infection likely from gram-positive skin bob however gram-negative infection not entirely excluded. 2patient to continuelocal wound care with the Santyl followed by moist dressing change daily. 3local culture growing MSSA as well as anaerobes 4patient currently waiting for debridement and deep cultures for now continue w ith Unasyn discharge antibiotic on the basis of depth of infection and deep culture Dictation was produced using [employer]ide[employer] dictation software. please excuse any grammatical, word or spelling errors. Time with Patient: Less than 30
[2025-03-25 17:05] LABS: Glucose,Whole Blood 100 mg/dL (70-110)
--- NOTE | 2025-03-25 17:05 | P.PN ---
Subjective Progress Note Date: 03/25/25 Principal diagnosis: Reason for follow-up is left big toe amputation site nonhealing wound/infection Patient is a 69-year-old male with a past medical history significant for diabetes mellitus hypertension hyperlipidemia [place] patient did have a history of left big toe amputation with subsequent nonhealing of the wound elevated hospital concerning for left big toe surgical site infection.Patient is status post left big toe imitation site wound debridement did not involve the wound deep culture has been obtained and there was a pocket of pus procedure completed on 03/24/2025 on today's evaluation that is 03/25/2025, Patient is afebrile this morning patient denies having any chest pain shortness of breath or cough, the patient is currently on room air, patient denies any abdominal pain no diarrhea no nausea no vomiting. Patient white count is 4.10 creatinine 0.9 Objective - Vital Signs Vital signs: Vital Signs Temp 98.4 F 03/25/25 08:00 Pulse 86 03/25/25 08:00 Resp 21 03/25/25 08:00 BP 124/73 03/25/25 08:00 Pulse Ox 96 03/25/25 08:00 FiO2 Intake & Output 03/24/25 03/25/25 03/25/25 18:59 06:59 18:59 Intake Total 1180 240 Output Total 903 925 Balance 277 -925 240 Weight 70.76 kg Intake: IV 600 Oral 580 240 Output: Urine 900 925 Estimated Blood Loss 3 Other: Voiding Method Urinal Urinal Urinal - Exam GENERAL DESCRIPTION: An elderly male lying in bed in no distress RESPIRATORY SYSTEM: Unlabored breathing , decreased breath sounds at bases HEART: S1 S2 regular rate and rhythm , ABDOMEN: Soft , no tenderness EXTREMITIES: Left extremity shallow wound with slough tissue no drainage - Labs CBC & Chem 7: 03/25/25 04:29 03/25/25 04:29 Labs: Abnormal Lab Results - Last 24 Hours (Table) 03/24/25 03/24/25 03/24/25 Range/Units 12:23 14:19 19:55 WBC (4.50-10.00) X 10*3/uL RBC (4.40-5.60) X 10*6/uL Hgb (13.0-17.0) g/dL Hct (39.6-50.0) % MCV (80.0-97.0) FL MCHC (32.0-37.0) g/dL RDW (11.5-14.5) % Lymphocytes # (0.90-5.00) X 10*3/uL BUN/Creatinine Ratio (12.00-20.00) Ratio Glucose (70-110) mg/dL POC Glucose (mg/dL) 48 L* 61 L 180 H (70-110) mg/dL 03/25/25 03/25/25 Range/Units 04:29 04:29 WBC 4.10 L (4.50-10.00) X 10*3/uL RBC 3.28 L (4.40-5.60) X 10*6/uL Hgb 10.2 L (13.0-17.0) g/dL Hct 32.3 L (39.6-50.0) % MCV 98.5 H (80.0-97.0) FL MCHC 31.6 L (32.0-37.0) g/dL RDW 15.3 H (11.5-14.5) % Lymphocytes # 0.76 L (0.90-5.00) X 10*3/uL BUN/Creatinine Ratio 21.89 H (12.00-20.00) Ratio Glucose 121 H (70-110) mg/dL POC Glucose (mg/dL) (70-110) mg/dL Microbiology - Last 24 Hours (Table) 03/24/25 14:00 Gram Stain - Preliminary Toe - Left First Assessment and Plan (1) Left great toe amputee Current Visit: Yes Status: Acute Code(s): Z89.412 - ACQUIRED ABSENCE OF LEFT GREAT TOE SNOMED Code(s): 589709402 (2) Diabetic ulcer of left foot Current Visit: Yes Status: Acute Code(s): E11.621 - TYPE 2 DIABETES MELLITUS WITH FOOT ULCER; L97.529 - NON-PRESSURE CHRONIC ULCER OTH PRT LEFT FOOT W UNSP SEVERITY SNOMED Code(s): 843379077 (3) Diabetic infection of left foot Current Visit: Yes Status: Acute Code(s): E11.628 - TYPE 2 DIABETES MELLITUS WITH OTHER SKIN COMPLICATIONS; L08.9 - LOCAL INFECTION OF THE SKIN AND SUBCUTANEOUS TISSUE, UNSP SNOMED Code(s): 438926098 (4) Cellulitis of left foot Current Visit: Yes Status: Acute Code(s): L03.116 - CELLULITIS OF LEFT LOWER LIMB SNOMED Code(s): 59700595218425802 Plan: 1patient with a chronic nonhealing wound to the left big toe amputation site with initial evaluation in about a month ago now admitted to hospital concerning for worsening wound nonhealing concern for secondary wound infection likely from gram-positive skin bob however gram-negative infection not entirely excluded. 2patient to continuelocal wound care with the Santyl followed by moist dressing change daily. 3local culture growing MSSA as well as anaerobes 4patient is status post debridement of the left big toe amputation site wound and deep cultures as the the pocket of pus patient is currently on Unasyn he has been advised IV antibiotic discharge is currently refusing in that case may go home on oral Augmentin this was discussed with the SENIOR PROJECT ACCOUNTANT for admitting team Dictation was produced using [employer] dictation software. please excuse any grammatical, word or spelling errors.
[2025-03-25 17:16] LABS: Glucose,Whole Blood 92 mg/dL (70-110)
[2025-03-25 19:58] LABS: Glucose,Whole Blood 96 mg/dL (70-110)
--- NOTE | 2025-03-26 04:08 | P.PN ---
Subjective Progress Note Date: 03/25/25 Patient evaluated in follow up on the medical floor. He continues on IV unasyn with left foot cellulitis at the recent amputation site. He is on IV unasyn. Pending bone scan and surgical debridement both of which are scheduled for Monday. He is report pain about 7/10 to the left foot today. Otherwise no acute complaints. Wound culture showing staphylococcus aureus. 03/23/2025 Patient eval today in follow-up of medical floor. No acute complaints overnight. He remains on IV Unasyn. He is scheduled for surgical debridement tomorrow. Wound cultures are showing Staphylococcus aureus as well as positive anerobic culture with prevotella bivia, prevotella disiens, anaerococcus vaginalis. 03/24/2025 Patient is currently n.p.o. today with vascular surgery following and plans on surgical debridement and deep cultures. Patient also scheduled to undergo bone scan with infectious disease following. Initial culture showing MSSA and will be awaiting deep tissue cultures to determine appropriate discharge antibiotics. Patient is also scheduled to undergo a bone scan today which was delayed due to the holiday. Results pending at this time patient is afebrile with no reports of chest pain or shortness of breath. Patient has been tolerating diet with no reported nausea or vomiting. Continue monitoring Accu-Cheks ACHS and will adjust insulins accordingly. 03/25/2025 Patient is seen in follow-up today status post I&D with vascular surgery today and currently awaiting pending cultures to determine appropriate discharge antibiotics. Patient is continued on IV antibiotics per infectious disease in the form of ampicillin and will continue while awaiting cultures. Initial cultures showing MSSA with multiple anaerobes and discussed with infectious disease recommending awaiting finalized cultures to determine appropriate discharge antibiotics. Patient is persistent on wanting to go home and agreeable to await another day to watch for the cultures to finalize. Patient is afebrile with no reports of chest pain or shortness of breath. Patient is room left foot discomfort although feels improved from previous. Patient surgical dressing is dry and intact and will continue with local wound care per vascular surgery. Encourage patient to elevate lower extremities while at rest. Blood sugars have been well-controlled and will continue current regimen, add sliding scale as needed. Patient does not use insulin at home. Patient reports he plans on returning home with his . Unsure about IV antibiotics at this time. Review of Systems Constitutional: Denied any fatigue denied any fever. Cardio vascular: denied any chest pain, palpitations Gastrointestinal: denied any nausea, vomiting, diarrhea Pulmonary: Denied any shortness of breath cough Neurologic denied any new focal deficits All inpatient medications were reviewed and appropriate changes in these medications as dictated in the interval history and assessment and plan. PHYSICAL EXAMINATION: GENERAL: The patient is alert and oriented x3, not in any acute distress. Well developed, well nourished. HEENT: Pupils are round and equally reacting to light. EOMI. No scleral icterus. No conjunctival pallor. Normocephalic, atraumatic. No pharyngeal erythema. No thyromegaly. CARDIOVASCULAR: S1 and S2 present. No murmurs, rubs, or gallops. PULMONARY: Chest is clear to auscultation, no wheezing or crackles. ABDOMEN: Soft, nontender, nondistended, normoactive bowel sounds. No palpable organomegaly. MUSCULOSKELETAL: No joint swelling or deformity. EXTREMITIES: No cyanosis, clubbing, or pedal edema. Left foot surgical dressing is dry and intact NEUROLOGICAL: Gross neurological examination did not reveal any focal deficits. SKIN: No rashes. 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, status post incision and debridement with deep tissue cultures on 03/24/2025 Diabetes Mellitus type 2, [id number], uncontrolled with hypoglycemia and hyperglycemia Hx hypertension currently low/normal Hyperlipidemia Hx of coronary artery disease with stenting Peripheral arterial disease with revascularization from outside facility Former Smoker GI prophylaxis DVT prophylaxis Full code Plan: Nuclear Medicine bone scan was negative for osteo and noted to have uptake with tissue swelling suggestive of cellulitis Patient is status post surgical debridement and deep tissue cultures on 03/24 with vascular surgery and awaiting deep tissue cultures to determine appropriate discharge antibiotics with infectious disease following. Patient would like to go home and unsure about IV antibiotics and awaiting cultures to determine appropriate discharge antibiotics. If patient is persistent on going home, may send with Augmentin and monitor closely and the cultures. Patient to follow-up with infectious disease outpatient as well as vascular surgery. Patient is agreeable to be monitored overnight and will follow-up with micro lab regarding cultures Continue IV unasyn for now Continue monitoring Accu-Cheks AC and at bedtime and will add insulins if needed. Patient has been up and walking with no difficulties and plans on returning home on discharge. Continue with local wound care and restrictions per vascular surgery. Instructed patient to elevate left lower extremity while at rest Consult to case management/social work to work on discharge planning. Will be awaiting deep tissue cultures from debridement done on 03/24/2025 to determine appropriate discharge antibiotics with infectious disease following. Possible discharge planning in the next 24 hours The impression and plan of care has been dictated by Riana Araya, Nurse Practitioner as directed. Dr. Ttius MD I have performed a history and physical examination and medical decision making of this patient, discussed the same with the dictator, and agree with the dictators assessment and plan as written, documented as a scribe. Based on total visit time, I have performed more than 50% of this visit. Objective - Vital Signs Vital signs: Vital Signs Temp 98.4 F 03/25/25 08:00 Pulse 86 03/25/25 08:00 Resp 21 03/25/25 08:00 BP 124/73 03/25/25 08:00 Pulse Ox 96 03/25/25 08:00 FiO2 Intake & Output 03/24/25 03/25/25 03/25/25 18:59 06:59 18:59 Intake Total 1180 240 Output Total 903 925 Balance 277 -925 240 Weight 70.76 kg Intake: IV 600 Oral 580 240 Output: Urine 900 925 Estimated Blood Loss 3 Other: Voiding Method Urinal Urinal Urinal - Labs CBC & Chem 7: 03/25/25 04:29 03/25/25 04:29 Labs: Abnormal Lab Results - Last 24 Hours (Table) 03/24/25 03/24/25 03/24/25 Range/Units 12:23 14:19 19:55 WBC (4.50-10.00) X 10*3/uL RBC (4.40-5.60) X 10*6/uL Hgb (13.0-17.0) g/dL Hct (39.6-50.0) % MCV (80.0-97.0) FL MCHC (32.0-37.0) g/dL RDW (11.5-14.5) % Lymphocytes # (0.90-5.00) X 10*3/uL BUN/Creatinine Ratio (12.00-20.00) Ratio Glucose (70-110) mg/dL POC Glucose (mg/dL) 48 L* 61 L 180 H (70-110) mg/dL 03/25/25 03/25/25 Range/Units 04:29 04:29 WBC 4.10 L (4.50-10.00) X 10*3/uL RBC 3.28 L (4.40-5.60) X 10*6/uL Hgb 10.2 L (13.0-17.0) g/dL Hct 32.3 L (39.6-50.0) % MCV 98.5 H (80.0-97.0) FL MCHC 31.6 L (32.0-37.0) g/dL RDW 15.3 H (11.5-14.5) % Lymphocytes # 0.76 L (0.90-5.00) X 10*3/uL BUN/Creatinine Ratio 21.89 H (12.00-20.00) Ratio Glucose 121 H (70-110) mg/dL POC Glucose (mg/dL) (70-110) mg/dL Microbiology - Last 24 Hours (Table) 03/24/25 14:00 Gram Stain - Preliminary Toe - Left First
[2025-03-26 06:53] LABS: Glucose,Whole Blood 116 mg/dL (70-110)
[2025-03-26 11:47] LABS: Glucose,Whole Blood 65 mg/dL (70-110)
[2025-03-26 12:03] LABS: Glucose,Whole Blood 63 mg/dL (70-110)
[2025-03-26 12:32] LABS: Glucose,Whole Blood 63 mg/dL (70-110)
[2025-03-26 12:35] LABS: Glucose,Whole Blood 54 mg/dL (70-110)
[2025-03-26 13:01] LABS: Glucose,Whole Blood 123 mg/dL (70-110)
[2025-03-26 17:06] LABS: Glucose,Whole Blood 113 mg/dL (70-110)
--- NOTE | 2025-03-26 17:25 | P.PN ---
Subjective Patient evaluated in follow up on the medical floor. He continues on IV unasyn with left foot cellulitis at the recent amputation site. He is on IV unasyn. Pending bone scan and surgical debridement both of which are scheduled for Monday. He is report pain about 7/10 to the left foot today. Otherwise no acute complaints. Wound culture showing staphylococcus aureus. 03/23/2025 Patient eval today in follow-up of medical floor. No acute complaints overnight. He remains on IV Unasyn. He is scheduled for surgical debridement tomorrow. Wound cultures are showing Staphylococcus aureus as well as positive anerobic culture with prevotella bivia, prevotella disiens, anaerococcus vaginalis. 03/24/2025 Patient is currently n.p.o. today with vascular surgery following and plans on surgical debridement and deep cultures. Patient also scheduled to undergo bone scan with infectious disease following. Initial culture showing MSSA and will be awaiting deep tissue cultures to determine appropriate discharge antibiotics. Patient is also scheduled to undergo a bone scan today which was delayed due to the holiday. Results pending at this time patient is afebrile with no reports of chest pain or shortness of breath. Patient has been tolerating diet with no reported nausea or vomiting. Continue monitoring Accu-Cheks ACHS and will adjust insulins accordingly. 03/25/2025 Patient is seen in follow-up today status post I&D with vascular surgery today and currently awaiting pending cultures to determine appropriate discharge antibiotics. Patient is continued on IV antibiotics per infectious disease in the form of ampicillin and will continue while awaiting cultures. Initial cultures showing MSSA with multiple anaerobes and discussed with infectious disease recommending awaiting finalized cultures to determine appropriate discharge antibiotics. Patient is persistent on wanting to go home and agreeable to await another day to watch for the cultures to finalize. Patient is afebrile with no reports of chest pain or shortness of breath. Patient is room left foot discomfort although feels improved from previous. Patient surgical dressing is dry and intact and will continue with local wound care per vascular surgery. Encourage patient to elevate lower extremities while at rest. Blood sugars have been well-controlled and will continue current regimen, add sliding scale as needed. Patient does not use insulin at home. Patient reports he plans on returning home with his . Unsure about IV antibiotics at this time. 03/26/2025 Patient evaluated today in follow up on the medical floor. Patient reporting minimal pain to the left foot. Status post surgical debridement and wound cultures remain pending with preliminary showing presumptive staphylococcus aureus. Pending approval for IV antibiotics/home care. Patient remains on IV unasyn. Patient found to be hypoglycemic with meal time accuchecks and recommending to hold glipizide at this time. Review of Systems Constitutional: Denied any fatigue denied any fever. Cardio vascular: denied any chest pain, palpitations Gastrointestinal: denied any nausea, vomiting, diarrhea Pulmonary: Denied any shortness of breath cough Neurologic denied any new focal deficits All inpatient medications were reviewed and appropriate changes in these medications as dictated in the interval history and assessment and plan. PHYSICAL EXAMINATION: GENERAL: The patient is alert and oriented x3, not in any acute distress. Well developed, well nourished. HEENT: Pupils are round and equally reacting to light. EOMI. No scleral icterus. No conjunctival pallor. Normocephalic, atraumatic. No pharyngeal erythema. No thyromegaly. CARDIOVASCULAR: S1 and S2 present. No murmurs, rubs, or gallops. PULMONARY: Chest is clear to auscultation, no wheezing or crackles. ABDOMEN: Soft, nontender, nondistended, normoactive bowel sounds. No palpable organomegaly. MUSCULOSKELETAL: No joint swelling or deformity. EXTREMITIES: No cyanosis, clubbing, or pedal edema. Left foot surgical dressing is dry and intact NEUROLOGICAL: Gross neurological examination did not reveal any focal deficits. SKIN: No rashes. 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, status post incision and debridement with deep tissue cultures on 03/24/2025 Diabetes Mellitus type 2, [id number], uncontrolled with hypoglycemia and hyperglycemia Hx hypertension currently low/normal Hyperlipidemia Hx of coronary artery disease with stenting Peripheral arterial disease with revascularization from outside facility Former Smoker GI prophylaxis DVT prophylaxis Full code Plan: Nuclear Medicine bone scan was negative for osteo and noted to have uptake with tissue swelling suggestive of cellulitis Patient is status post surgical debridement and deep tissue cultures on 03/24 with vascular surgery and awaiting deep tissue cultures to determine appropriate discharge antibiotics with infectious disease following. Pending authorization for outpatient IV antibiotics/home care Continue IV unasyn for now Continue monitoring Accu-Cheks AC and at bedtime and will add insulins if needed. Discontinue glipizide. Patient has been up and walking with no difficulties and plans on returning home on discharge. Continue with local wound care and restrictions per vascular surgery. Instructed patient to elevate left lower extremity while at rest Consult to case management/social work to work on discharge planning. Will be awaiting deep tissue cultures from debridement done on 03/24/2025 to determine appropriate discharge antibiotics with infectious disease following. Possible discharge planning in the next 24 hours The impression and plan of care has been dictated by Brooklynn Hayes, Nurse Practitioner as directed. Dr. Titus MD I have performed a history and physical examination and medical decision making of this patient, discussed the same with the dictator, and agree with the dic tators assessment and plan as written, documented as a scribe. Based on total visit time, I have performed more than 50% of this visit. Objective - Vital Signs Vital signs: Vital Signs Temp 97.6 F 03/26/25 06:50 Pulse 91 03/26/25 08:25 Resp 16 03/26/25 08:25 BP 126/74 03/26/25 06:50 Pulse Ox 96 03/26/25 06:50 FiO2 Intake & Output 03/25/25 03/26/25 03/26/25 18:59 06:59 18:59 Intake Total 1680 240 Output Total 1000 2100 Balance 680 -2100 240 Intake: Oral 1680 240 Output: Urine 1000 2100 Other: Voiding Method Urinal Urinal Urinal # Voids 1 - Labs CBC & Chem 7: 03/25/25 04:29 03/25/25 04:29 Labs: Abnormal Lab Results - Last 24 Hours (Table) 03/25/25 03/25/25 03/25/25 Range/Units 12:05 12:37 13:10 POC Glucose (mg/dL) 69 L 65 L 64 L (70-110) mg/dL 03/26/25 Range/Units 06:52 POC Glucose (mg/dL) 116 H (70-110) mg/dL Microbiology - Last 24 Hours (Table) 03/24/25 14:00 Gram Stain - Preliminary Toe - Left First Wound Culture - Preliminary Presumptive Staph aureus Assessment and Plan Time with Patient: Less than 30
[2025-03-26 19:47] LABS: Glucose,Whole Blood 126 mg/dL (70-110)
[2025-03-27 06:48] LABS: Glucose,Whole Blood 135 mg/dL (70-110)
[2025-03-27 07:35] VITALS: BP 124/69; PULSE 92; RESP 16; TEMP 97.9
--- NOTE | 2025-03-27 08:20 | P.PN ---
Subjective Progress Note Date: 03/26/25 Principal diagnosis: Reason for follow-up is left big toe amputation site nonhealing wound/infection Patient is a 69-year-old male with a past medical history significant for diabetes mellitus hypertension hyperlipidemia [place] patient did have a history of left big toe amputation with subsequent nonhealing of the wound [facility] hospital concerning for left big toe surgical site infection.Patient is status post left big toe imitation site wound debridement did not involve the wound deep culture has been obtained and there was a pocket of pus procedure completed on 03/24/2025 on today's evaluation that is 03/26/2025,the patient denies any fever or any chills, patient is breathing comfortably on room air, the patient denies chest pain shortness of breath and no significant cough, patient denies abdominal pain, no nausea vomiting or diarrhea. Patient denies pain to the left big toe amputation site wound or any drainage. No new lab has been obtained today OR culture also growing MSSA anaerobe cultures are pending Objective - Vital Signs Vital signs: Vital Signs Temp 97.6 F 03/26/25 06:50 Pulse 91 03/26/25 08:25 Resp 16 03/26/25 08:25 BP 126/74 03/26/25 06:50 Pulse Ox 96 03/26/25 06:50 FiO2 Intake & Output 03/25/25 03/26/25 03/26/25 18:59 06:59 18:59 Intake Total 1680 240 Output Total 1000 2100 Balance 680 -2100 240 Weight 70.76 kg Intake: Oral 1680 240 Output: Urine 1000 2100 Other: Voiding Method Urinal Urinal Urinal # Voids 1 - Exam GENERAL DESCRIPTION: An elderly male lying in bed in no distress RESPIRATORY SYSTEM: Unlabored breathing , decreased breath sounds at bases HEART: S1 S2 regular rate and rhythm , ABDOMEN: Soft , no tenderness EXTREMITIES: Left extremity shallow wound with slough tissue no drainage - Labs CBC & Chem 7: 03/25/25 04:29 03/25/25 04:29 Labs: Abnormal Lab Results - Last 24 Hours (Table) 03/25/25 03/25/25 03/25/25 Range/Units 12:05 12:37 13:10 POC Glucose (mg/dL) 69 L 65 L 64 L (70-110) mg/dL 03/26/25 Range/Units 06:52 POC Glucose (mg/dL) 116 H (70-110) mg/dL Microbiology - Last 24 Hours (Table) 03/24/25 14:00 Gram Stain - Preliminary Toe - Left First Wound Culture - Preliminary Presumptive Staph aureus Assessment and Plan (1) Left great toe amputee Current Visit: Yes Status: Acute Code(s): Z89.412 - ACQUIRED ABSENCE OF LEFT GREAT TOE SNOMED Code(s): 953581435 (2) Diabetic ulcer of left foot Current Visit: Yes Status: Acute Code(s): E11.621 - TYPE 2 DIABETES MELLITUS WITH FOOT ULCER; L97.529 - NON-PRESSURE CHRONIC ULCER OTH PRT LEFT FOOT W UNSP SEVERITY SNOMED Code(s): 979239357 (3) Diabetic infection of left foot Current Visit: Yes Status: Acute Code(s): E11.628 - TYPE 2 DIABETES MELLITUS WITH OTHER SKIN COMPLICATIONS; L08.9 - LOCAL INFECTION OF THE SKIN AND SUBCUTANEOUS TISSUE, UNSP SNOMED Code(s): 712100074 (4) Cellulitis of left foot Current Visit: Yes Status: Acute Code(s): L03.116 - CELLULITIS OF LEFT LOWER LIMB SNOMED Code(s): 93639846025733832 Plan: 1patient with a chronic nonhealing wound to the left big toe amputation site with initial evaluation in about a month ago now admitted to hospital concerning for worsening wound nonhealing concern for secondary wound infection likely from gram-positive skin bob however gram-negative infection not entirely excluded. 2patient to continuelocal wound care with the Santyl followed by moist dressing change daily. 3local culture growing MSSA as well as anaerobes 4patient is status post debridement of the left big toe amputation site wound and deep cultures as the the pocket of pus which is currently growing staph sensitivities pending 5patient is currently on Unasyn patient seem to be agreeable to IV antibiotic at this point we are currently waiting for coverage may consider cefazolin 2 g every 8 hours versus Rocephin and oral Flagyl this has been discussed in detail with MANAGER DIESEL for admitting team Dictation was produced using [employer] dictation software. please excuse any grammatical, word or spelling errors. Time with Patient: Less than 30
[2025-03-27 08:32] LABS: Anion Gap 10.00 mmol/L (4.00-12.00); BUN/Creat Ratio 23.89 Ratio (12.00-20.00); Blood Urea Nitrogen 21.5 mg/dL (9.0-27.0); Calcium 8.9 mg/dL (8.7-10.3); Carbon Dioxide 24.0 mmol/L (21.6-31.8); Chloride 104 mmol/L (96-109); Glucose 117 mg/dL (70-110); Potassium 4.9 mmol/L (3.5-5.5); Sodium 138 mmol/L (135-145)
[2025-03-27 11:54] LABS: Glucose,Whole Blood 129 mg/dL (70-110)
--- NOTE | 2025-03-28 15:11 | P.PN ---
Subjective Progress Note Date: 03/27/25 Principal diagnosis: Reason for follow-up is left big toe amputation site nonhealing wound/infection Patient is a 69-year-old male with a past medical history significant for diabetes mellitus hypertension hyperlipidemia [place] patient did have a history of left big toe amputation with subsequent nonhealing of the wound [facility] hospital concerning for left big toe surgical site infection.Patient is status post left big toe imitation site wound debridement did not involve the wound deep culture has been obtained and there was a pocket of pus procedure completed on 03/24/2025 on today's evaluation that is 03/27/2025,the patient remains to be afebrile, patient is on room air not requiring supplemental oxygen and denies any shortness of breath no chest pain or cough.Patient denies having any nausea or vomiting, no abdominal pain and no diarrhea has been reported denies pain to the left big toe amputation site wound. Patient did have a creatinine 0.9 local culture with MSSA Objective - Vital Signs Vital signs: Vital Signs Temp 97.9 F 03/27/25 06:46 Pulse 92 03/27/25 06:46 Resp 16 03/27/25 06:46 BP 124/69 03/27/25 06:46 Pulse Ox 96 03/27/25 06:46 FiO2 Intake & Output 03/26/25 03/27/25 03/27/25 18:59 06:59 18:59 Intake Total 2460 1500 Output Total 1300 Balance 2460 200 Weight 70.76 kg Intake: Oral 2460 Other 1500 Output: Urine 1300 Other: Voiding Method Urinal Urinal # Voids 6 900 # Bowel Movements 1 - Exam GENERAL DESCRIPTION: An elderly male lying in bed in no distress RESPIRATORY SYSTEM: Unlabored breathing , decreased breath sounds at bases HEART: S1 S2 regular rate and rhythm , ABDOMEN: Soft , no tenderness EXTREMITIES: Left extremity shallow wound with slough tissue no drainage - Labs CBC & Chem 7: 03/25/25 04:29 03/27/25 04:54 Labs: Abnormal Lab Results - Last 24 Hours (Table) 03/26/25 03/26/25 03/26/25 Range/Units 11:46 12:01 12:29 BUN/Creatinine Ratio (12.00-20.00) Ratio Glucose (70-110) mg/dL POC Glucose (mg/dL) 65 L 63 L 63 L (70-110) mg/dL 03/26/25 03/26/25 03/26/25 Range/Units 12:31 12:59 17:05 BUN/Creatinine Ratio (12.00-20.00) Ratio Glucose (70-110) mg/dL POC Glucose (mg/dL) 54 L 123 H 113 H (70-110) mg/dL 03/26/25 03/27/25 03/27/25 Range/Units 19:43 04:54 06:47 BUN/Creatinine Ratio 23.89 H (12.00-20.00) Ratio Glucose 117 H (70-110) mg/dL POC Glucose (mg/dL) 126 H 135 H (70-110) mg/dL Microbiology - Last 24 Hours (Table) 03/24/25 14:00 Anaerobic Culture - Preliminary Toe - Left First 03/24/25 14:00 Gram Stain - Final Toe - Left First Wound Culture - Final Staphylococcus aureus Assessment and Plan (1) Left great toe amputee Status: Acute Code(s): Z89.412 - ACQUIRED ABSENCE OF LEFT GREAT TOE SNOMED Code(s): 009443429 (2) Diabetic ulcer of left foot Status: Acute Code(s): E11.621 - TYPE 2 DIABETES MELLITUS WITH FOOT ULCER; L97.529 - NON-PRESSURE CHRONIC ULCER OTH PRT LEFT FOOT W UNSP SEVERITY SNOMED Code(s): 633092462 (3) Diabetic infection of left foot Status: Acute Code(s): E11.628 - TYPE 2 DIABETES MELLITUS WITH OTHER SKIN COMPLICATIONS; L08.9 - LOCAL INFECTION OF THE SKIN AND SUBCUTANEOUS TISSUE, UNSP SNOMED Code(s): 625814578 (4) Cellulitis of left foot Status: Acute Code(s): L03.116 - CELLULITIS OF LEFT LOWER LIMB SNOMED Code(s): 12356220637276158 Plan: 1patient with a chronic nonhealing wound to the left big toe amputation site with initial evaluation in about a month ago now admitted to hospital concerning for worsening wound nonhealing concern for secondary wound infection likely from gram-positive skin bob however gram-negative infection not entirely excluded. 2patient to continuelocal wound care with the Santyl followed by moist dressing change daily. 3local culture growing MSSA as well as anaerobes 4patient is status post debridement of the left big toe amputation site wound and deep cultures as the the pocket of pus which is currently growing staph sensitivities pending 5patient did have a midline placement plan is to finish therapy with a 2-week course of oral cefazolin and oral Flagyl prescription sent to the pharmacy to cl ose the patient follow-up Dictation was produced using [employer] dictation software. please excuse any grammatical, word or spelling errors. Time with Patient: Less than 30
== END 2025-03-27 12:46 | disposition home health service (06) | DRG 464 ==
LOC: EC 13:27 → 5NMEDONC 17:27
PROVIDERS: ADMIT Internal Medicine; ATTEND Internal Medicine
PROC: 0JBR0ZZ Excision of Left Foot Subcutaneous Tissue and Fascia, Open Approach (ICD-10-PCS; principal; 2025-03-24 15:00)
PROC: F08 Physical Rehabilitation and Diagnostic Audiology, Rehabilitation, Activities of Daily Living Treatment (ICD-10-PCS; principal; 2025-03-24 15:00)
PROC: 05H933Z Insertion of Infusion Device into Right Brachial Vein, Percutaneous Approach (ICD-10-PCS; 2025-03-27 11:20)
DX: T87.44 Infection of amputation stump, left lower extremity (principal); L03.116 Cellulitis of left lower limb; E11.51 Type 2 diabetes mellitus with diabetic peripheral angiopathy without gangrene; D64.9 Anemia, unspecified; B95.61 Methicillin susceptible Staphylococcus aureus infection as the cause of diseases classified elsewhere; D72.819 Decreased white blood cell count, unspecified; I10 Essential (primary) hypertension; E11.621 Type 2 diabetes mellitus with foot ulcer; E11.65 Type 2 diabetes mellitus with hyperglycemia; E11.649 Type 2 diabetes mellitus with hypoglycemia without coma; E11.628 Type 2 diabetes mellitus with other skin complications; L97.529 Non-pressure chronic ulcer of other part of left foot with unspecified severity; L03.032 Cellulitis of left toe; E78.5 Hyperlipidemia, unspecified; I25.2 Old myocardial infarction; I25.10 Atherosclerotic heart disease of native coronary artery without angina pectoris; Z79.82 Long term (current) use of aspirin; Z79.02 Long term (current) use of antithrombotics/antiplatelets; Z79.84 Long term (current) use of oral hypoglycemic drugs; Z79.899 Other long term (current) drug therapy; Z87.891 Personal history of nicotine dependence; Z95.5 Presence of coronary angioplasty implant and graft; Y83.5 Amputation of limb(s) as the cause of abnormal reaction of the patient, or of later complication, without mention of misadventure at the time of the procedure
CPT/HCPCS: 36410; 36415; 76937; 78315; 80048; 80053; 80202; 83036; 83605; 83735; 85025; 86140; 87040; 87070; 87075; 87077; 87186; 87205; 96365; 96366; 96375; 99284